=== PATIENT | male | born 1960 | race Caucasian/White ===

== ENCOUNTER 2017-06-12 10:56 | Observation (INO) ==
--- NOTE | 2017-06-12 11:28 | Emergency Department Note ---
Disposition Clinical Impression: Hydronephrosis of right kidney, Urinary tract obstruction by kidney stone Chest pain Qualifiers: Chest pain type: precordial pain Qualified Code(s): R07.2 - Precordial pain Disposition: Admitted As Inpatient Condition: Fair Time of Disposition: 15:01 Chest Pain HPI - General Chief Complaint: ED Chest Pain Stated Complaint: Needs a heart evaluation Source: patient, family Limitations: no limitations Vital Signs Reviewed: Yes Nursing Notes Reviewed: Yes - History of Present Illness HPI Narrative: 57-year-old male history of previous TX with [address] May cardiology. Patient states that the past 2 weeks his been having increased fatigue. He has complaints of intermittent chest pain left sided chest last seconds at a time. No diaphoresis lightheadedness and dizziness recorded with episodes. Patient states pain sharp and intense and then goes away without intervention. Patient's states that he has been more fatigued than he is letting on. She states that he does not want to get up to do anything. She called Dr. May's office and was directed to bring him in for evaluation. Severity scale (1-10): 0 - Related Data Home Medications Medication Instructions Recorded Confirmed Esomeprazole Magnesium [Nexium] 40 mg PO DAILY 07/23/16 06/12/17 Losartan [Cozaar] 50 mg PO DAILY 10/29/16 06/12/17 amLODIPine [Norvasc] 10 mg PO DAILY 10/29/16 06/12/17 Carvedilol [Carvedilol] 3.125 mg PO BID 06/12/17 06/12/17 Ticagrelor [Brilinta] 90 mg PO BID 06/12/17 06/12/17 Previous Rx's Medication Instructions Recorded Aspirin 81 mg PO DAILY #60 tab.chew 07/24/16 Nitroglycerin 0.4 mg SL Q5MIN PRN #30 tab.subl 07/24/16 Allergies Allergy/AdvReac Type Severity Reaction Status Date / Time No Known Allergies Allergy Verified 06/12/17 10:59 Review of Systems: Patient admits to intermittent nausea and vomiting. No hematemesis. Patient denies dysuria, hematuria, melana or hematochezia. Patient admits to abdominal pain no diarrhea All systems ED: reviewed and negative except as stated. Review of Systems: As Per HPI Chest Pain PMH - Past Medical History Medical history: Reports: arthritis, asthma, cardiomyopathy, coronary artery disease, GERD, hyperlipidemia, hypertension, myocardial infarction, renal disease, other Surgical history: Reports: angioplasty/stent, appendectomy, orthopedic, other, other Psychiatric history: Reports: no psych history Prior Cardiac Testing/Procedures: Stenting, Cardiac Angiogram - Social History Smoking Status: Never smoker Alcohol use: Reports: none Drug use: Reports: none Physical Exam - General Limitations: no limitations General appearance: alert, in no apparent distress - Head Head exam: atraumatic, normocephalic, normal inspection - Eye Eye exam: Present: normal appearance, PERRL, EOMI - ENT ENT exam: normal exam, normal oropharynx, mucous membranes moist - Neck Neck exam: Present: normal inspection, full ROM, trachea midline - Chest Chest inspection: Present: normal inspection, symmetric chest wall rise - Cardiovascular Cardiovascular exam: Present: regular rate, normal rhythm, normal heart sounds - Abdominal Exam Abdominal exam: Present: soft, tenderness, normal bowel sounds. Absent: distention, guarding, rebound, rigidity Abdominal tenderness: Present: RLQ, LUQ, diffuse - Extremities Exam Extremities exam: Present: normal inspection, full ROM. Absent: tenderness, pedal edema - Expanded Lower Extremity Exam Hip/Pelvis exam: Present: normal inspection, full ROM Upper leg exam: Present: normal inspection, full ROM Knee exam: Present: normal inspection, full ROM Lower leg exam: Present: normal inspection, full ROM Ankle exam: Present: normal inspection, full ROM Foot/toe exam: Present: normal inspection, full ROM Neurovascular/Tendon exam: Absent: motor deficit, sensory deficit, tendon deficit - Back Exam Back exam: Present: normal inspection, full ROM, tenderness, CVA tenderness (R) . Absent: CVA tenderness (L) - Neurological Exam Neurological exam: Present: alert, oriented X3, CN II-XII intact - Skin Skin exam: Present: warm, dry, intact, normal color. Absent: cyanosis, diaphoresis Course - Reevaluation(s) Reevaluation #1: CBC, BMP, chest x-ray 2 view, troponin ordered CT abdomen and pelvis ordered. Time: 11:42 - Consultations Consultation #1: Dr. Maxim Logan cardiology was consulted about the speed on patient condition. States that does not seem much for them to do right now but can admitted to medicine And they will follow-up with patient on the floor. Time: 14:14 Consultation #2: Dr. Anderson of Urology states outpatient follow-up one - two weeks. if admitted they will see him. Time: 14:30 Consultation #3: Joselyn naranjo Hospitalist has accepted Pt for admission [id number] Time: 14:58 Vital Signs Temperature 97.8 F 06/12/17 11:02 Pulse Rate 76 06/12/17 11:02 Respiratory Rate 16 06/12/17 11:02 Blood Pressure 137/89 06/12/17 11:02 O2 Sat by Pulse Oximetry 97 06/12/17 11:02 Temperature 98.3 F 06/12/17 23:10 Pulse Rate 75 06/12/17 23:10 Respiratory Rate 16 06/12/17 23:10 Blood Pressure 127/77 06/12/17 23:10 O2 Sat by Pulse Oximetry 97 06/12/17 23:10 Oxygen Delivery Oxygen Delivery Room Air Chest Pain - MDM Narrative Medical decision making narrative: Patient chest pain concern for ACS/TX, Unstable angina. Also on the differential diagnosis as PE, aortic dissection. Patient has some abdominal tenderness may be attributed to constipation but also concerning for bowel ischemia as well. Patient reports no hematemesis, no hematochezia or melanotic stool. Will check urine as well possible UTI. Plan after workup as a consult cardiology and plan for admit Assessment case with Dr. Maxim Logan cardiology to recommends admission. I spoke to patient concerning this. Patient agrees and accepts admission decision. I also spoke with Dr. Anderson of urology who states that they will see patient once admitted to assess his large proximal stone. Joselyn Way hospitalist has accepted the patient for admission. Urine ordered to rule out infection which resulted in no UTI. - Lab Data Lab results reviewed: Yes I reviewed the patient's lab results. Lab results narrative: Short CBC 06/12/17 Range/Units 12:14 WBC 9.1 (4.3-11.1) K/mcL Hgb 14.2 (12.9-16.9) g/dL Hct 40.8 (37.5-50.1) % Plt Count 261 (140-400) K/mcL Neutrophils # 5.5 (1.6-8.9) K/mcL BMP 06/12/17 Range/Units 12:14 Sodium 138 (136-145) mEq/L Potassium 4.4 (3.5-4.5) mEq/L Chloride 106 (98-109) mEq/L Carbon Dioxide 23 (19-29) mEq/L BUN 22 (8-26) mg/dL Creatinine 1.20 (0.72-1.25) mg/dL Glucose 112 H (70-99) mg/dL Calcium 9.5 (8.6-10.8) mg/dL Cardiac Enzymes 06/12/17 Range/Units 12:14 Troponin I 0.00 (0-0.03) ng/mL Liver Function 06/12/17 Range/Units 12:14 Total Bilirubin 0.7 (0.2-1.2) mg/dL Direct Bilirubin 0.3 (0.0-0.5) mg/dL AST 19 (5-34) Units/L ALT 23 (0-55) Units/L Alkaline Phosphatase 65 (38-126) Units/L Albumin 4.0 (3.5-5.0) g/dL Result diagrams: 06/12/17 12:14 06/12/17 12:14 Lab Results 06/12/17 06/12/17 06/12/17 Range/Units 12:14 12:14 12:14 WBC (4.3-11.1) K/mcL RBC (4.19-5.50) M/mcL Hgb (12.9-16.9) g/dL Hct (37.5-50.1) % MCV (83.0-100.0) fL MCH (28.0-33.3) pg MCHC (31.6-35.5) g/dL RDW (11.5-14.5) % Plt Count (140-400) K/mcL MPV (9.4-12.4) fL Immature Gran % (0-4) % Seg Neutrophils % % Lymphocytes % % Monocytes % % Eosinophils % % Basophils % % Neutrophils # (1.6-8.9) K/mcL Lymphocytes # (0.6-4.6) K/mcL Monocytes # (0.0-1.3) K/mcL Eosinophils # (0.0-0.6) K/mcL Basophils # (0.0-0.2) K/mcL PT 10.9 (9.4-12.1) Seconds INR 1.0 APTT 30.2 (26.0-36.0) Seconds D-Dimer 301 (0-500) ng/mLFEU Sodium 138 (136-145) mEq/L Potassium 4.4 (3.5-4.5) mEq/L Chloride 106 (98-109) mEq/L Carbon Dioxide 23 (19-29) mEq/L BUN 22 (8-26) mg/dL Creatinine 1.20 (0.72-1.25) mg/dL Est GFR ( Amer) > 60 (> 60) Est GFR (Non-Af Amer) > 60 (> 60) BUN/Creatinine Ratio 18 (6-26) Glucose 112 H (70-99) mg/dL Calculated Osmolality 290 (280-300) Lactic Acid 1.0 (0.5-2.2) mmol/L Calcium 9.5 (8.6-10.8) mg/dL Total Bilirubin 0.7 (0.2-1.2) mg/dL Direct Bilirubin 0.3 (0.0-0.5) mg/dL Indirect Bilirubin 0.4 (0.0-1.2) mg/dL AST 19 (5-34) Units/L ALT 23 (0-55) Units/L Alkaline Phosphatase 65 (38-126) Units/L Troponin I (0-0.03) ng/mL Serum Total Protein 7.8 (6.0-8.3) g/dL Albumin 4.0 (3.5-5.0) g/dL Globulin 3.8 H (2.4-3.5) g/dL Albumin/Globulin Ratio 1.1 (1.1-2.2) Lipase 50 (8-78) Units/L 06/12/17 06/12/17 Range/Units 12:14 12:14 WBC 9.1 (4.3-11.1) K/mcL RBC 4.33 (4.19-5.50) M/mcL Hgb 14.2 (12.9-16.9) g/dL Hct 40.8 (37.5-50.1) % MCV 94.2 (83.0-100.0) fL MCH 32.8 (28.0-33.3) pg MCHC 34.8 (31.6-35.5) g/dL RDW 12.7 (11.5-14.5) % Plt Count 261 (140-400) K/mcL MPV 9.1 L (9.4-12.4) fL Immature Gran % 0.3 (0-4) % Seg Neutrophils % 60.2 % Lymphocytes % 28.7 % Monocytes % 7.2 % Eosinophils % 3.0 % Basophils % 0.6 % Neutrophils # 5.5 (1.6-8.9) K/mcL Lymphocytes # 2.6 (0.6-4.6) K/mcL Monocytes # 0.7 (0.0-1.3) K/mcL Eosinophils # 0.3 (0.0-0.6) K/mcL Basophils # 0.1 (0.0-0.2) K/mcL PT (9.4-12.1) Seconds INR APTT (26.0-36.0) Seconds D-Dimer (0-500) ng/mLFEU Sodium (136-145) mEq/L Potassium (3.5-4.5) mEq/L Chloride (98-109) mEq/L Carbon Dioxide (19-29) mEq/L BUN (8-26) mg/dL Creatinine (0.72-1.25) mg/dL Est GFR ( Amer) (> 60) Est GFR (Non-Af Amer) (> 60) BUN/Creatinine Ratio (6-26) Glucose (70-99) mg/dL Calculated Osmolality (280-300) Lactic Acid (0.5-2.2) mmol/L Calcium (8.6-10.8) mg/dL Total Bilirubin (0.2-1.2) mg/dL Direct Bilirubin (0.0-0.5) mg/dL Indirect Bilirubin (0.0-1.2) mg/dL AST (5-34) Units/L ALT (0-55) Units/L Alkaline Phosphatase (38-126) Units/L Troponin I 0.00 (0-0.03) ng/mL Serum Total Protein (6.0-8.3) g/dL Albumin (3.5-5.0) g/dL Globulin (2.4-3.5) g/dL Albumin/Globulin Ratio (1.1-2.2) Lipase (8-78) Units/L - Radiology Data Radiology results reviewed: Yes I reviewed the patient's radiology results. Chest X-Ray 06/12/17 11:42 IMPRESSION: No acute process. D/ / Alejandro Titus MD / Alejandro Titus MD Interpreting Provider: Alejandro Titus MD Abdomen/Pelvis CT 06/12/17 11:43 IMPRESSION: 1. Severe right-sided hydronephrosis, secondary to a 10 x 14 mm calculus in the proximal right ureter. 2. A couple of punctate calculi are noted in the left kidney. 3. Hepatic steatosis. D/ / 06/12/2017 12:39:55 Leola Boyce / alonso Interpreting Provider: Leola Boyce - EKG Data EKG attestation: Yes I reviewed and interpreted this EKG. EKG results narrative: EKG taken 06/12/2017 at 1102 hrs. shows sinus rhythm at a rate [address] elevation or depressions A Leas, no gross widened QT prolongation,no brugada , wellens, or scarbosa. Previous EKG taken in 10/29/2016 shows a sinus rhythm at a rate of 69 beats had no acute ST elevations or depressions Heart Score - Score History: Slightly Suspicious EKG: Normal Age: 45-65 Risk Factors: Equal/Greater than 3 risk factor or history of atherosclerotic disease Troponin: Less than normal limit HEART Score Total: 3 Attestation Statement - Attestation Attestation: Patient was seen with resident physician. I reviewed the history, physical, assessment and plan, and agree with the findings. I also personally evaluated this patient and had [id number] time with this patient. 49-year-old male presents to emergency department with worsening chest painful S week or so. Patient is somewhat stoic and is part of the history is obtained from his . She says he comes home from work was done to relaxants develops chest pressure or chest pain like sensation. Patient states that it is sharp and it only lasts for seconds at a time. seems to think that last slightly longer than this. He has also had some intermittent abdominal pain he says ever since he changed his reflux medication to generic from brand name. She says he has been unable to eat usual meals and he describes a bloating sensation the abdomen without specific location of pain. Denies fevers or chills. No shortness of breath. On examination vital signs are stable. ENT is unremarkable. Her lungs are normal. Abdomen is distended but nontender there is no guarding rigidity and he has normal bowel sounds. Extremities are unremarkable. Neurologically this patient is intact. ED course we will do workup for cardiac disease. 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 He does have a significant cardiac history. Initial EKG does not menstruate any acute ischemic changes. Once all the lab tests are back we will contact cardiology to help disposition the patient. Initial cardiac workup was negative for acute abnormalities. Patient was found to have an obstructing renal stone which could be causing his abdominal discomfort. We discussed this case with cardiology who suggested admission for serial troponins. We also discussed with urology who said he could see him as an inpatient. Findings of the workup were discussed with the patient he agreed to stay in the hospital. Hospitalist service was notified and the patient was admitted Agree with resident physician assessment plan.
[2017-06-12] MEDS ORDERED: Aspirin 81 MG TAB.CHEW PO ONE (11:42)
[2017-06-12] MEDS ORDERED: GI Cocktail 40 ML EACH PO ONE (11:42)
[2017-06-12] MEDS ORDERED: Ondansetron 4 MG/2 ML VIAL IVP ONE (11:42)
[2017-06-12 12:26] LABS: Basophils # 0.1 K/mcL (0.0-0.2); Basophils % 0.6 %; Eosinophils # 0.3 K/mcL (0.0-0.6); Hematocrit 40.8 % (37.5-50.1); Hemoglobin 14.2 g/dL (12.9-16.9); Immature Granulocytes % 0.3 % (0-4); Lymphocytes # 2.6 K/mcL (0.6-4.6); Lymphocytes % 28.7 %; Mean Corpuscular HGB Conc 34.8 g/dL (31.6-35.5); Mean Corpuscular Hemoglobin 32.8 pg (28.0-33.3); Mean Corpuscular Volume 94.2 fL (83.0-100.0); Mean Platelet Volume 9.1 fL (9.4-12.4); Monocytes # 0.7 K/mcL (0.0-1.3); Monocytes % 7.2 %; Neutrophils # 5.5 K/mcL (1.6-8.9); Platelet Count 261 K/mcL (140-400); Red Blood Count 4.33 M/mcL (4.19-5.50); Red Cell Distribution Width 12.7 % (11.5-14.5); Segmented Neutrophils % 60.2 %
[2017-06-12 12:29] LABS: Prothrombin Time 10.9 Seconds (9.4-12.1)
[2017-06-12 12:31] LABS: Activated Partial Thrombo Time 30.2 Seconds (26.0-36.0)
[2017-06-12] MEDS ORDERED: 0.9 % Sodium Chloride 1,000 ML IVC ONE (12:36)
[2017-06-12 12:41] LABS: Alanine Aminotransferase 23 Units/L (0-55); Alkaline Phosphatase 65 Units/L (38-126); Aspartate Amino Transferase 19 Units/L (5-34); BUN/Creatinine Ratio 18 (6-26); Bilirubin,Direct 0.3 mg/dL (0.0-0.5); Bilirubin,Indirect 0.4 mg/dL (0.0-1.2); Bilirubin,Total 0.7 mg/dL (0.2-1.2); Blood Urea Nitrogen 22 mg/dL (8-26); Calcium 9.5 mg/dL (8.6-10.8); Carbon Dioxide 23 mEq/L (19-29); Chloride 106 mEq/L (98-109); Glucose 112 mg/dL (70-99); Osmolality,Calculated 290 (280-300); Potassium 4.4 mEq/L (3.5-4.5); Sodium 138 mEq/L (136-145); Total Protein 7.8 g/dL (6.0-8.3); eGFR For African Americans > 60 (> 60); eGFR For Non-African Americans > 60 (> 60)
[2017-06-12 12:42] LABS: Albumin/Globulin Ratio 1.1 (1.1-2.2); Globulin 3.8 g/dL (2.4-3.5); Lipase 50 Units/L (8-78)
[2017-06-12] MEDS ORDERED: Acetaminophen 325 MG TABLET PO PRN (15:26)
[2017-06-12] MEDS ORDERED: Ondansetron 4 MG/2 ML VIAL IVP PRN (15:26)
[2017-06-12] MEDS ORDERED: Naloxone 0.4 MG/ML INJ IVP PRN (15:26)
[2017-06-12] MEDS ORDERED: Nitroglycerin 0.4 MG TAB.SUBL SL PRN (15:29)
[2017-06-12] MEDS: 0.9 % Sodium Chloride 1,000 ML IVC SCH (17:20)
[2017-06-12 18:07] LABS: Bilirubin,Urine Negative (Negative); Blood,Urine Negative (Negative); Clarity,Urine Clear (Clear); Color,Urine Yellow (Yellow); Glucose,Urine (UA) Normal (Normal); Ketones,Urine Negative (Negative); Leukocyte Esterase,Urine Negative (Negative); Nitrite,Urine Negative (Negative); Protein,Urine Negative (Neg-Trace); Specific Gravity,Urine 1.013 (1.010-1.025); Urobilinogen,Urine Normal (Normal)
--- NOTE | 2017-06-12 18:52 | Urology - Consult Note ---
Date of Encounter: 06/12/17 Time of Encounter: 18:50 - Assessment and Plan (1) Ureteral stone with hydronephrosis Current Visit: Yes Status: Acute Assessment and plan: I personally reviewed the CT scan and discussed the findings with the patient and his . Although the patient has severe hydronephrosis he does not meet criteria for emergent urologic intervention as he has no severe pain, no signs of urinary tract infection or renal insufficiency. I do feel that a lot of his symptoms of the last few months are likely attributed to the stone. I suspect it has been in this position for some time. We did discuss performing a ureteral stent while the patient was in the hospital which could help relieve some of his symptoms. After the stent was placed he would require a staged stone extraction. I would need the patient to be cleared from a cardiology standpoint if this procedure will occur this weekend. Alternatively, I could schedule the patient for an outpatient in situ stone extraction in the near future which would allow treatment of the stone in one procedure. He would like to pursue this route as he is not having acute illness from the stone. I feel this is reasonable. I will rediscuss with the patient in the morning to verify he is comfortable with this plan. If this is the case, he can be discharged as soon as he is cleared from a cardiac standpoint. Urology CN:CHRISTOPHER Consult date: 06/12/17 Reason for consult Urology: Hydronephrosis History of present illness: 57-year-old male. He presented to the emergency room with epigastric pressure some left sided chest discomfort, occasional nausea vomiting. No specific flank pain. The CT scan was done which showed a large proximal ureteral stone with hydronephrosis. He admits to a distant history of stones but has not had similar flank pain as previous. States he's not felt right for a number of months and believes now it may have been the stone. He admits that he overall does not feel bad. No gross hematuria. No dysuria. No fever. Past Med Surg Social Fam HX - Past Medical History Medical history: arthritis, asthma, cardiomyopathy, coronary artery disease, GERD, hyperlipidemia, hypertension, myocardial infarction, renal disease, other Psychiatric history: no psych history - Past Surgical History Surgical History: angioplasty/stent, appendectomy, orthopedic, other, other - Social History Smoking Status: Never smoker Smokeless Tobacco Status: No Alcohol use: none Drug use: none - Family History Father Living Status: Hx Family Cardiac Disorders: Yes (defibulator, CHF, [place]) Mother Living Status: Still Living Hx Family Cardiac Disorders: Yes (triple bypass) Hx Family Cancer: Yes (breast cancer) Medications and Allergies Esomeprazole Magnesium [Nexium] 40 mg PO DAILY 07/23/16 [History] Aspirin 81 mg PO DAILY #60 tab.chew 07/24/16 [Rx] Nitroglycerin 0.4 mg SL Q5MIN PRN #30 tab.subl 07/24/16 [Rx] Losartan [Cozaar] 50 mg PO DAILY 10/29/16 [History] amLODIPine [Norvasc] 10 mg PO DAILY 10/29/16 [History] Carvedilol [Carvedilol] 3.125 mg PO BID 06/12/17 [History] Ticagrelor [Brilinta] 90 mg PO BID 06/12/17 [History] 3 Allergy/AdvReac Type Severity Reaction Status Date / Time No Known Allergies Allergy Verified 06/12/17 10:59 Review of Systems - Constitutional no chills, no fever(s) - EENT Nose, mouth and throat: no dizziness - Cardiovascular chest pain - Gastrointestinal abdominal pain, nausea, vomiting - Genitourinary no flank pain - Musculoskeletal back pain - Integumentary no erythema - Neurological no confusion - Psychiatric no anxiety - Hematologic/Lymphatic no easy bleeding - Allergic/Immunologic no throat swelling Exam Initial Vital Signs Temp Pulse Resp BP Pulse Ox 97.8 F 76 16 137/89 97 06/12/17 11:02 06/12/17 11:02 06/12/17 11:02 06/12/17 11:02 06/12/17 11:02 - General physical appearance Present: well developed, no distress - Eyes Present: PERRL - ENT Present: normal nares - Neck Present: no masses - Respiratory Present: normal respiratory effort - Cardiovascular Cardiovascular exam IM: RRR - Abdomen Abdomen: Present: soft - Integumentary Present: no rash, no growths, no abnormal pigmentation - Neurologic Absent: disoriented, confused Urology Results - Labs 06/12/17 12:14 06/12/17 12:14 Abnormal lab results MPV 9.1 fL (9.4-12.4) L 06/12/17 12:14 Glucose 112 mg/dL (70-99) H 06/12/17 12:14 Globulin 3.8 g/dL (2.4-3.5) H 06/12/17 12:14 All other labs normal. Consult Discharge Plan - Plan Referrals: Rogerio Mccarthy MD [Primary Care Provider] -
--- NOTE | 2017-06-12 19:29 | Internal Med History&Physical ---
<Joselyn Way M - Last Filed: 06/12/17 20:32> Date of Encounter: 06/12/17 Time of Encounter: 19:23 Assessment and Plan (1) Chest pain Current visit: Yes Status: Acute Patient with occasional sharp pain in his chest that usually resolved on its own in less that 1 minute. Patient with history of CAD with stent placement in October. EKG showed Sinus rhythm with no ST elevation or depression. Troponin negative at 0.00. Cardiology consulted given patient's history. Continuous monitor tech Serial troponins for trend. Continue aspirin, beta colten, statin. NPO after midnight in case of possible intervention. Qualifiers: Chest pain type: precordial pain Qualified Code(s): R07.2 - Precordial pain (2) Ureteral stone with hydronephrosis Current visit: Yes Status: Acute Patient reporting abdominal pain, occasional nausea and vomiting. CT abd/ pelvis showed severe right sided hydronephrosis with a 10 x 14 mm right proximaly ureteral stone. UA negative for infection. Urology consulted, Dr. Anderson saw patient and plans outpatient follow-up and will see patient again tomorrow. IV fluids - given 1L bolus in ED, continue with 0.9NS at 100mL/hr. Zofran prn for nausea. (3) CAD (coronary artery disease), [place] coronary artery Current visit: Yes Status: Chronic History of CAD with stent in October. Continue home dose of aspirin, statin, beta colten. Qualifiers: [place] vs. transplanted heart: [place] heart Associated angina: with stable angina Qualified Code(s): I25.118 - Atherosclerotic heart disease of [place] coronary artery with other forms of angina pectoris (4) DVT prophylaxis Current visit: Yes Status: Acute anti-embolic stockings heparin SQ TID Internal Medicine - H&P: HPI Chief complaint: chest pain, abdominal pain Admitted From: Emergency Dept Plans for Post Hospital Care: Home History of present illness: Mr. Hayes is a 57 year old male with asthma, GERD, CAD s/p stent placement x 2 (most recently in October), kidney stones, HTN, HLD who presented to the emergency department today with complaints of fatigue, intermittent chest pain, abdominal pain, nausea and vomiting. Patient reports that he has been feeling tired and fatigued for the last couple weeks, in the last week he has had intermittent chest pain, describing it as a sharp sudden pain lasting less than a minute. The last couple of days he has also had nausea and vomiting in the afternoon. He also describes occasional lightheadedness and abdominal pain. He denies any fever, chills or sweats, he denies any dysuria, diarrhea or hernia , palpitations. Evaluation in the emergency department included EKG which showed sinus rhythm with no ST elevations or depressions, troponin was negative at 0.00. CT of the abdomen and pelvis showed severe right-sided hydronephrosis with a 10 x 14 mm proximal right ureteral stone. Other labs are grossly normal. On exam, patient alert and oriented, in no acute distress. Heart is regular rate and rhythm, lungs are clear bilaterally to auscultation. Abdomen is soft, with mild diffuse tenderness, with increased tenderness on the right. Past Med Surg Social Fam HX - Past Medical History Medical history: arthritis, asthma, cardiomyopathy, coronary artery disease, GERD, hyperlipidemia, hypertension, kidney stones, myocardial infarction, renal disease, other Psychiatric history: no psych history - Past Surgical History Surgical History: angioplasty/stent, appendectomy, orthopedic, other, other - Social History Smoking Status: Never smoker Smokeless Tobacco Status: No Alcohol use: none Drug use: none - Family History Father Living Status: Hx Family Cardiac Disorders: Yes (defibulator, CHF, [place]) Mother Living Status: Still Living Hx Family Cardiac Disorders: Yes (triple bypass) Hx Family Cancer: Yes (breast cancer) Internal Medicine - H&P: Meds Esomeprazole Magnesium [Nexium] 40 mg PO DAILY 07/23/16 [History] Aspirin 81 mg PO DAILY #60 tab.chew 07/24/16 [Rx] Nitroglycerin 0.4 mg SL Q5MIN PRN #30 tab.subl 07/24/16 [Rx] Losartan [Cozaar] 50 mg PO DAILY 10/29/16 [History] amLODIPine [Norvasc] 10 mg PO DAILY 10/29/16 [History] Carvedilol [Carvedilol] 3.125 mg PO BID 06/12/17 [History] Ticagrelor [Brilinta] 90 mg PO BID 06/12/17 [History] 3 Allergy/AdvReac Type Severity Reaction Status Date / Time No Known Allergies Allergy Verified 06/12/17 10:59 All Systems PM: A 10-system review of systems was performed and is negative for pertinent findings except as documented above in the HPI. - Constitutional Constitutional: fatigue, no chills, no fever(s), no night sweats - EENT Eyes: no change in vision, no discharge, no pain, no photophobia Ears: no ear discharge, no ear pain, no tinnitus Nose, mouth and throat: no dysphagia, no nasal discharge, no neck pain, no sore throat - Cardiovascular Cardiovascular ROS IM: chest pain, dyspnea on exertion, lightheadedness, no diaphoresis, no dyspnea, no palpitations, no syncope - Respiratory Respiratory: no cough, no dyspnea, no wheezing, no excessive phlegm production - Gastrointestinal Gastrointestinal: abdominal pain, nausea, vomiting, no diarrhea, no hematemesis , no hematochezia, no melena - Musculoskeletal Musculoskeletal ROS IM: no numbness, no tingling - Integumentary Integumentary IM: no rash, no unusual bruising - Neurological Neurological ROS: no confusion, no convulsions, no focal weakness, no numbness, no tingling, no tremor(s) - Hematologic/Lymphatic Hematologic/Lymphatic: no easy bruising - Constitutional Vitals: Temp Pulse Resp BP Pulse Ox 97.6 F 73 18 133/99 98 06/12/17 15:31 06/12/17 15:31 06/12/17 15:31 06/12/17 15:31 06/12/17 15:31 General appearance: Present: A&O X 3, pleasant, no acute distress - Head Head exam: Present: atraumatic, normocephalic - Eye Eye exam: Present: PERRL, conjuntiva pink, sclera anicteric Pupils: Present: PERRL - Neck Neck exam general surgery: Present: supple, trachea midline. Absent: lymphadenopathy - Respiratory Respiratory exam: Present: CTAB. Absent: accessory muscle use, rales, rhonchi, wheezes - Cardiovascular Cardiovascular exam: Present: RRR, +S1, +S2. Absent: diastolic murmur, gallop, rubs, systolic murmur - GI/Abdominal GI/Abdominal exam: Present: normal bowel sounds, soft, tenderness (mild diffuse , right side greater than left), no peritoneal signs. Absent: distended - Extremities Exam Extremities exam: Present: warm, radial pulses palpable and symmetrical. Absent : calf tenderness, cyanotic, pedal edema - Neurological Exam Neurological exam: Present: CN II-XII intact, oriented X3, no focal deficits. Absent: pronater drift, facial droop, speech deficit - Skin Skin exam: Present: dry, intact Internal Med - H&P Results - Labs CBC & Chem 7: 06/12/17 12:14 06/12/17 12:14 Labs: Cardiac Enzymes 06/12/17 Range/Units 17:36 Troponin I 0.00 (0-0.03) ng/mL Urine 06/12/17 Range/Units 17:50 Urine Color Yellow (Yellow) Urine Clarity Clear (Clear) Urine pH 7.0 (5.0-8.0) pH Units Ur Specific [place] 1.013 (1.010-1.025) Urine Protein Negative (Neg-Trace) mg/dL Urine Glucose (UA) Normal (Normal) mg/dL All Lab Results (24 Hours) 06/12/17 06/12/17 06/12/17 Range/Units 12:14 12:14 12:14 WBC (4.3-11.1) K/mcL RBC (4.19-5.50) M/mcL Hgb (12.9-16.9) g/dL Hct (37.5-50.1) % MCV (83.0-100.0) fL MCH (28.0-33.3) pg MCHC (31.6-35.5) g/dL RDW (11.5-14.5) % Plt Count (140-400) K/mcL MPV (9.4-12.4) fL Immature Gran % (0-4) % Seg Neutrophils % % Lymphocytes % % Monocytes % % Eosinophils % % Basophils % % Neutrophils # (1.6-8.9) K/mcL Lymphocytes # (0.6-4.6) K/mcL Monocytes # (0.0-1.3) K/mcL Eosinophils # (0.0-0.6) K/mcL Basophils # (0.0-0.2) K/mcL PT 10.9 (9.4-12.1) Seconds INR 1.0 APTT 30.2 (26.0-36.0) Seconds D-Dimer 301 (0-500) ng/mLFEU Sodium 138 (136-145) mEq/L Potassium 4.4 (3.5-4.5) mEq/L Chloride 106 (98-109) mEq/L Carbon Dioxide 23 (19-29) mEq/L BUN 22 (8-26) mg/dL Creatinine 1.20 (0.72-1.25) mg/dL Est GFR ( Amer) > 60 (> 60) Est GFR (Non-Af Amer) > 60 (> 60) BUN/Creatinine Ratio 18 (6-26) Glucose 112 H (70-99) mg/dL Calculated Osmolality 290 (280-300) Lactic Acid 1.0 (0.5-2.2) mmol/L Calcium 9.5 (8.6-10.8) mg/dL Total Bilirubin 0.7 (0.2-1.2) mg/dL Direct Bilirubin 0.3 (0.0-0.5) mg/dL Indirect Bilirubin 0.4 (0.0-1.2) mg/dL AST 19 (5-34) Units/L ALT 23 (0-55) Units/L Alkaline Phosphatase 65 (38-126) Units/L Troponin I (0-0.03) ng/mL Serum Total Protein 7.8 (6.0-8.3) g/dL Albumin 4.0 (3.5-5.0) g/dL Globulin 3.8 H (2.4-3.5) g/dL Albumin/Globulin Ratio 1.1 (1.1-2.2) Lipase 50 (8-78) Units/L Urine Color (Yellow) Urine Clarity (Clear) Urine pH (5.0-8.0) pH Units Ur Specific [place] (1.010-1.025) Urine Protein (Neg-Trace) mg/dL Urine Glucose (UA) (Normal) mg/dL Urine Ketones (Negative) mg/dL Urine Blood (Negative) Urine Nitrite (Negative) Urine Bilirubin (Negative) Urine Urobilinogen (Normal) mg/dL Ur Leukocyte Esterase (Negative) Ur Culture Indicated? (NO) 06/12/17 06/12/17 06/12/17 Range/Units 12:14 12:14 17:36 WBC 9.1 (4.3-11.1) K/mcL RBC 4.33 (4.19-5.50) M/mcL Hgb 14.2 (12.9-16.9) g/dL Hct 40.8 (37.5-50.1) % MCV 94.2 (83.0-100.0) fL MCH 32.8 (28.0-33.3) pg MCHC 34.8 (31.6-35.5) g/dL RDW 12.7 (11.5-14.5) % Plt Count 261 (140-400) K/mcL MPV 9.1 L (9.4-12.4) fL Immature Gran % 0.3 (0-4) % Seg Neutrophils % 60.2 % Lymphocytes % 28.7 % Monocytes % 7.2 % Eosinophils % 3.0 % Basophils % 0.6 % Neutrophils # 5.5 (1.6-8.9) K/mcL Lymphocytes # 2.6 (0.6-4.6) K/mcL Monocytes # 0.7 (0.0-1.3) K/mcL Eosinophils # 0.3 (0.0-0.6) K/mcL Basophils # 0.1 (0.0-0.2) K/mcL PT (9.4-12.1) Seconds INR APTT (26.0-36.0) Seconds D-Dimer (0-500) ng/mLFEU Sodium (136-145) mEq/L Potassium (3.5-4.5) mEq/L Chloride (98-109) mEq/L Carbon Dioxide (19-29) mEq/L BUN (8-26) mg/dL Creatinine (0.72-1.25) mg/dL Est GFR ( Amer) (> 60) Est GFR (Non-Af Amer) (> 60) BUN/Creatinine Ratio (6-26) Glucose (70-99) mg/dL Calculated Osmolality (280-300) Lactic Acid (0.5-2.2) mmol/L Calcium (8.6-10.8) mg/dL Total Bilirubin (0.2-1.2) mg/dL Direct Bilirubin (0.0-0.5) mg/dL Indirect Bilirubin (0.0-1.2) mg/dL AST (5-34) Units/L ALT (0-55) Units/L Alkaline Phosphatase (38-126) Units/L Troponin I 0.00 0.00 (0-0.03) ng/mL Serum Total Protein (6.0-8.3) g/dL Albumin (3.5-5.0) g/dL Globulin (2.4-3.5) g/dL Albumin/Globulin Ratio (1.1-2.2) Lipase (8-78) Units/L Urine Color (Yellow) Urine Clarity (Clear) Urine pH (5.0-8.0) pH Units Ur Specific [place] (1.010-1.025) Urine Protein (Neg-Trace) mg/dL Urine Glucose (UA) (Normal) mg/dL Urine Ketones (Negative) mg/dL Urine Blood (Negative) Urine Nitrite (Negative) Urine Bilirubin (Negative) Urine Urobilinogen (Normal) mg/dL Ur Leukocyte Esterase (Negative) Ur Culture Indicated? (NO) 06/12/17 Range/Units 17:50 WBC (4.3-11.1) K/mcL RBC (4.19-5.50) M/mcL Hgb (12.9-16.9) g/dL Hct (37.5-50.1) % MCV (83.0-100.0) fL MCH (28.0-33.3) pg MCHC (31.6-35.5) g/dL RDW (11.5-14.5) % Plt Count (140-400) K/mcL MPV (9.4-12.4) fL Immature Gran % (0-4) % Seg Neutrophils % % Lymphocytes % % Monocytes % % Eosinophils % % Basophils % % Neutrophils # (1.6-8.9) K/mcL Lymphocytes # (0.6-4.6) K/mcL Monocytes # (0.0-1.3) K/mcL Eosinophils # (0.0-0.6) K/mcL Basophils # (0.0-0.2) K/mcL PT (9.4-12.1) Seconds INR APTT (26.0-36.0) Seconds D-Dimer (0-500) ng/mLFEU Sodium (136-145) mEq/L Potassium (3.5-4.5) mEq/L Chloride (98-109) mEq/L Carbon Dioxide (19-29) mEq/L BUN (8-26) mg/dL Creatinine (0.72-1.25) mg/dL Est GFR ( Amer) (> 60) Est GFR (Non-Af Amer) (> 60) BUN/Creatinine Ratio (6-26) Glucose (70-99) mg/dL Calculated Osmolality (280-300) Lactic Acid (0.5-2.2) mmol/L Calcium (8.6-10.8) mg/dL Total Bilirubin (0.2-1.2) mg/dL Direct Bilirubin (0.0-0.5) mg/dL Indirect Bilirubin (0.0-1.2) mg/dL AST (5-34) Units/L ALT (0-55) Units/L Alkaline Phosphatase (38-126) Units/L Troponin I (0-0.03) ng/mL Serum Total Protein (6.0-8.3) g/dL Albumin (3.5-5.0) g/dL Globulin (2.4-3.5) g/dL Albumin/Globulin Ratio (1.1-2.2) Lipase (8-78) Units/L Urine Color Yellow (Yellow) Urine Clarity Clear (Clear) Urine pH 7.0 (5.0-8.0) pH Units Ur Specific [place] 1.013 (1.010-1.025) Urine Protein Negative (Neg-Trace) mg/dL Urine Glucose (UA) Normal (Normal) mg/dL Urine Ketones Negative (Negative) mg/dL Urine Blood Negative (Negative) Urine Nitrite Negative (Negative) Urine Bilirubin Negative (Negative) Urine Urobilinogen Normal (Normal) mg/dL Ur Leukocyte Esterase Negative (Negative) Ur Culture Indicated? NO (NO) - Diagnostic Studies CT scan - abdomen Additional comments: Abdomen/Pelvis CT 06/12/17 11:43 IMPRESSION: 1. Severe right-sided hydronephrosis, secondary to a 10 x 14 mm calculus in the proximal right ureter. 2. A couple of punctate calculi are noted in the left kidney. 3. Hepatic steatosis. D/ / 06/12/2017 12:39:55 Leola Boyce / alonso Interpreting Provider: Leola Boyce Chest x-ray Additional comments: Chest X-Ray 06/12/17 11:42 IMPRESSION: No acute process. D/ / Alejandro Titus MD / Alejandro Titus MD Interpreting Provider: Alejandro Titus MD <Zuhair Link - Last Filed: 06/12/17 21:08> Date of Encounter: 06/12/17 Time of Encounter: 19:55 - Cardiovascular Cardiovascular ROS IM: chest pain, dyspnea on exertion - Respiratory Respiratory: no cough, no hemoptysis - Gastrointestinal Gastrointestinal: abdominal pain, nausea, vomiting - Genitourinary Genitourinary ROS male: no dysuria, no flank pain, no hematuria - Constitutional Vitals: Temp Pulse Resp BP Pulse Ox 98.5 F 81 16 131/88 96 06/12/17 19:25 06/12/17 19:25 06/12/17 19:25 06/12/17 19:25 06/12/17 19:25 General appearance: Present: A&O X 3, no acute distress - Eye Eye exam: Present: PERRL. Absent: scleral icterus - ENT ENT exam: Present: mucous membranes moist, normal exam - Neck Neck exam general surgery: Present: full ROM, supple. Absent: tenderness - Respiratory Respiratory exam: Present: CTAB. Absent: rales, rhonchi, wheezes - Cardiovascular Cardiovascular exam: Present: RRR, +S1, +S2. Absent: systolic murmur - GI/Abdominal GI/Abdominal exam: Present: normal bowel sounds, soft, tenderness (mild), no peritoneal signs. Absent: guarding, mass, rebound - Back Exam Back exam: Present: normal inspection. Absent: CVA tenderness (L), CVA tenderness (R) - Skin Skin exam: Present: dry, warm. Absent: rash Internal Med - H&P Results - Labs CBC & Chem 7: 06/12/17 12:14 06/12/17 12:14 Labs: Cardiac Enzymes 06/12/17 Range/Units 17:36 Troponin I 0.00 (0-0.03) ng/mL Urine 06/12/17 Range/Units 17:50 Urine Color Yellow (Yellow) Urine Clarity Clear (Clear) Urine pH 7.0 (5.0-8.0) pH Units Ur Specific [place] 1.013 (1.010-1.025) Urine Protein Negative (Neg-Trace) mg/dL Urine Glucose (UA) Normal (Normal) mg/dL - EKG Data -: EKG Interpreted by Myself - EKG Data Prior EKG available for review: no - Impressions NSR; no acute changes - Diagnostic Studies Chest x-ray Status: image reviewed by me (negative) - Attending Attestation I discussed the patient [place], PMH, ROS, lab data, and exam findings with Joselyn Way CNP. I then saw and examined patient independently as well. Patient described having CP while powerwashing his house the last 2 days. He then developed some vague abdominal pain and nausea and vomiting. He is currently pain free and comfortable. He has a large ureteral stone with hydronephrosis which will need to be dealt with urologically. I agree with cycling troponins and EKG's. I also agree with and request Cardiology consultation to assist in evaluation given the upcoming surgical procedure as planned per Dr. Anderson. If his condition declines from a renal/urologic standpoint, he will then require inpatient urologic intervention. However, for now, he appears well clinically and I agree with the current plan. Other than my comments above and noted exam findings, I agree with Joselyn's assessment and plan.
[2017-06-12] MEDS: *HR* Ticagrelor 90 MG TABLET PO SCH (21:56)
[2017-06-12] MEDS: *HR* Heparin 5,000 UNIT/ML VIAL SQ SCH (21:57)
[2017-06-13 00:36] LABS: Basophils # 0.1 K/mcL (0.0-0.2); Basophils % 0.6 %; Eosinophils # 0.3 K/mcL (0.0-0.6); Eosinophils % 2.9 %; Hematocrit 39.9 % (37.5-50.1); Hemoglobin 13.9 g/dL (12.9-16.9); Immature Granulocytes % 0.3 % (0-4); Lymphocytes # 3.2 K/mcL (0.6-4.6); Lymphocytes % 36.9 %; Mean Corpuscular HGB Conc 34.8 g/dL (31.6-35.5); Mean Corpuscular Hemoglobin 32.9 pg (28.0-33.3); Mean Corpuscular Volume 94.5 fL (83.0-100.0); Mean Platelet Volume 9.2 fL (9.4-12.4); Monocytes # 0.7 K/mcL (0.0-1.3); Neutrophils # 4.5 K/mcL (1.6-8.9); Platelet Count 267 K/mcL (140-400); Red Blood Count 4.22 M/mcL (4.19-5.50); Red Cell Distribution Width 12.8 % (11.5-14.5); Segmented Neutrophils % 51.3 %
[2017-06-13 00:44] LABS: BUN/Creatinine Ratio 14 (6-26); Blood Urea Nitrogen 18 mg/dL (8-26); Calcium 9.2 mg/dL (8.6-10.8); Carbon Dioxide 22 mEq/L (19-29); Chloride 107 mEq/L (98-109); Glucose 97 mg/dL (70-99); Osmolality,Calculated 288 (280-300); Potassium 4.5 mEq/L (3.5-4.5); Sodium 138 mEq/L (136-145); eGFR For African Americans > 60 (> 60); eGFR For Non-African Americans 59 (> 60)
[2017-06-13] MEDS: 0.9 % Sodium Chloride 1,000 ML IVC SCH (03:36)
[2017-06-13] MEDS: *HR* Heparin 5,000 UNIT/ML VIAL SQ SCH (03:37)
--- NOTE | 2017-06-13 06:27 | Urology Progress Note ---
Date of Encounter: 06/13/17 Time of Encounter: 06:25 - Assessment and Plan (1) Ureteral stone with hydronephrosis Current Visit: Yes Status: Acute Assessment and plan: Patient has had no pain overnight. Urinalysis is negative. Renal function is stable and normal. Patient does not require urgent stent during this hospitalization. This was discussed yesterday. It looks like his cardiac workup is negative. Okay with urology discharge this morning. My office will contact patient Thursday to schedule outpatient ureteroscopic stone extraction Progress Note Subjective: no new complaints Objective Initial Vital Signs Temp Pulse Resp BP Pulse Ox 97.8 F 76 16 137/89 97 06/12/17 11:02 06/12/17 11:02 06/12/17 11:02 06/12/17 11:02 06/12/17 11:02 - General physical appearance Present: no distress - Labs 06/13/17 00:21 06/13/17 00:21 Diabetes panel 06/13/17 Range/Units 00:21 Sodium 138 (136-145) mEq/L Potassium 4.5 (3.5-4.5) mEq/L Chloride 107 (98-109) mEq/L Carbon Dioxide 22 (19-29) mEq/L BUN 18 (8-26) mg/dL Creatinine 1.25 (0.72-1.25) mg/dL Glucose 97 (70-99) mg/dL Calcium 9.2 (8.6-10.8) mg/dL Calcium panel 06/13/17 Range/Units 00:21 Calcium 9.2 (8.6-10.8) mg/dL Pituitary panel 06/13/17 Range/Units 00:21 Sodium 138 (136-145) mEq/L Potassium 4.5 (3.5-4.5) mEq/L Chloride 107 (98-109) mEq/L Carbon Dioxide 22 (19-29) mEq/L BUN 18 (8-26) mg/dL Creatinine 1.25 (0.72-1.25) mg/dL Glucose 97 (70-99) mg/dL Calcium 9.2 (8.6-10.8) mg/dL Adrenal panel 06/13/17 Range/Units 00:21 Sodium 138 (136-145) mEq/L Potassium 4.5 (3.5-4.5) mEq/L Chloride 107 (98-109) mEq/L Carbon Dioxide 22 (19-29) mEq/L BUN 18 (8-26) mg/dL Creatinine 1.25 (0.72-1.25) mg/dL Glucose 97 (70-99) mg/dL Calcium 9.2 (8.6-10.8) mg/dL Consult Discharge Plan - Plan Referrals: Rogerio Mccarthy MD [Primary Care Provider] -
[2017-06-13] MEDS ORDERED: amLODIPine 5 MG TABLET PO SCH (09:00)
[2017-06-13] MEDS ORDERED: Aspirin 81 MG TAB.CHEW PO SCH (09:00)
--- NOTE | 2017-06-13 09:16 | Cardiology Consult Note ---
Date of Encounter: 06/13/17 Time of Encounter: 09:14 Assessment and Plan (1) Chest pain Current Visit: Yes Status: Acute Atypical chest pain. EKG and cardiac enzymes negative. No further cardiac w/u needed. Qualifiers: Chest pain type: other chest pain Qualified Code(s): R07.89 - Other chest pain; R07.8 - Other chest pain Discussion w patient/family: The assessment and plan as outlined above was discussed with the patient and/or family members who expressed understanding and agreement. All questions were answered. Thank you for involving us in the care of your patient. Please call with any questions. History of Present Illness Consult date: 06/13/17 Requesting physician: Alexus Fuchs Consult reason: Chest pain Chief complaint: Chest pain History of present illness: Mr. Hayes is a 57 year old male with known CAD. He presented with atypical chest pain not similar to previous angina. He was found to have a large kidney stone. The remainder of his cardiac workup was negative. Past Med Surg Social Fam HX - Past Medical History Medical history: arthritis, asthma, cardiomyopathy, coronary artery disease, GERD, hyperlipidemia, hypertension, myocardial infarction, renal disease, other Psychiatric history: no psych history - Past Surgical History Surgical History: angioplasty/stent, appendectomy, orthopedic, other, other - Social History Smoking Status: Never smoker Smokeless Tobacco Status: No Alcohol use: none Drug use: none - Family History Father Living Status: Hx Family Cardiac Disorders: Yes (defibulator, CHF, [place]) Mother Living Status: Still Living Hx Family Cardiac Disorders: Yes (triple bypass) Hx Family Cancer: Yes (breast cancer) Medications and Allergies Esomeprazole Magnesium [Nexium] 40 mg PO DAILY 07/23/16 [History] Aspirin 81 mg PO DAILY #60 tab.chew 07/24/16 [Rx] Nitroglycerin 0.4 mg SL Q5MIN PRN #30 tab.subl 07/24/16 [Rx] Losartan [Cozaar] 50 mg PO DAILY 10/29/16 [History] amLODIPine [Norvasc] 10 mg PO DAILY 10/29/16 [History] Carvedilol [Carvedilol] 3.125 mg PO BID 06/12/17 [History] Ticagrelor [Brilinta] 90 mg PO BID 06/12/17 [History] 3 Allergy/AdvReac Type Severity Reaction Status Date / Time No Known Allergies Allergy Verified 06/12/17 10:59 All Systems Review: A 10-system review of systems was performed and is negative for pertinent findings except as documented above in the HPI. Physical Examination Vital Signs, Last 4 Hours Temp Pulse Resp BP Pulse Ox 06/13/17 07:21 98.6 F 70 14 142/92 98 General: Conversant, No Apparent Distress HEENT: Atraumatic, Normocephaly, Mucus Membranes Moist Neck: No JVD, Normal carotid pulses Cardiac: Reg Rate and Rhythm, Normal S1 and S2, No Murmur Lungs: Normal Breath Sounds, No Wheeze, Rales, Rhonchi Neuro: Alert and responsive, No focal deficits noted Abdomen: Soft, Non-Tender Skin: No rashes noted on visualized skin Musculoskeletal: No Chest Wall Tenderness Extremities: No Clubbing, No Cyanosis, No Edema, Normal Pulses Results 06/13/17 00:21 06/13/17 00:21 Lab Results 06/12/17 06/13/17 06/13/17 17:36 00:21 00:21 WBC 8.7 Hgb 13.9 Hct 39.9 Plt Count 267 Sodium Potassium Chloride Carbon Dioxide BUN Creatinine Glucose Calcium Troponin I 0.00 0.00 06/13/17 00:21 WBC Hgb Hct Plt Count Sodium 138 Potassium 4.5 Chloride 107 Carbon Dioxide 22 BUN 18 Creatinine 1.25 Glucose 97 Calcium 9.2 Troponin I - EKG Interpretation EKG results cardiology: personally reviewed (NSR, no acute ST or T wave changes. ) Consult Discharge Plan - Plan Referrals: Rogerio Mccarthy MD [Primary Care Provider] -
[2017-06-13] MEDS: *HR* Ticagrelor 90 MG TABLET PO SCH (10:42)
[2017-06-13 11:53] VITALS: BP 130/88
--- NOTE | 2017-06-13 16:21 | Discharge Summary ---
Date of Encounter: 06/13/17 Time of Encounter: 12:30 - Discharge Diagnosis (1) DVT prophylaxis Priority: Secondary Status: Acute Comments: Heparin sQ (2) Ureteral stone with hydronephrosis Priority: Secondary Status: Acute Comments: He states that he feels better, was admitted with abdominal pain nausea and vomiting. CT abdomen and pelvis showed severe right-sided hydronephrosis. Dr. Anderson has evaluated patient. There is no surgical intervention needed at this time. He will follow-up in the office (3) CAD (coronary artery disease), [place] coronary artery Priority: Secondary Status: Chronic Comments: Patient had stent placed in October. Continue aspirin, statin, beta colten. Qualifiers: [place] vs. transplanted heart: [place] heart Associated angina: with stable angina Qualified Code(s): I25.118 - Atherosclerotic heart disease of [place] coronary artery with other forms of angina pectoris (4) Dyslipidemia Priority: Secondary Status: Chronic Comments: Continue statin. (5) GERD (gastroesophageal reflux disease) Priority: Secondary Status: Chronic Comments: Chronic. Continue home medications. Qualifiers: Esophagitis presence: esophagitis presence not specified Qualified Code(s) : K21.9 - Gastro-esophageal reflux disease without esophagitis - Discharge Medications Home Medications: Esomeprazole Magnesium [Nexium] 40 mg PO DAILY 07/23/16 [History] Aspirin 81 mg PO DAILY #60 tab.chew 07/24/16 [Rx] Nitroglycerin 0.4 mg SL Q5MIN PRN #30 tab.subl 07/24/16 [Rx] Losartan [Cozaar] 50 mg PO DAILY 10/29/16 [History] amLODIPine [Norvasc] 10 mg PO DAILY 10/29/16 [History] Carvedilol 3.125 mg PO BID 06/12/17 [History] Ticagrelor [Brilinta] 90 mg PO BID 06/12/17 [History] Allergies/Adverse Reactions: 3 Allergy/AdvReac Type Severity Reaction Status Date / Time No Known Allergies Allergy Verified 06/12/17 10:59 Date of admission: 06/12/17 15:00 Primary care physician: Rogerio Mccarthy MD Discharging clinician: Alexus Fuchs Anticipated date of discharge: 06/13/17 - Patient Status Disposition: Home, Self-Care Condition: Fair - Discharge Instructions Instructions: Chest Pain (DC) Follow Up With: Rogerio Mccarthy MD [Primary Care Provider] - Hospital course: Mr. Hayes is a 57 year old male with past medical history of hyperlipidemia, hypertension, chest pain, coronary artery disease with stent placement 2 months ago, renal calculi. He presented to the emergency department plates of fatigue , intermittent chest pain, abdominal pain, nausea and vomiting. Patient reports he been feeling tired and fatigued for the last couple weeks and has had intermittent chest pain, describing a sharp, lasting less than 1 minute. He also reports nausea and vomiting in the afternoon for left couple of days. This reported abdominal pain but denies any fever, chills sweats, denies any dysuria, diarrhea, hernia, or palpitations. CT of abdomen and pelvis in the emergency department showed severe right-sided hydronephrosis with a 10 x 14 mm proximal right ureteral stone. He was seen by urology there is no surgical intervention needed at this time. He will follow-up in the office. She was evaluated by cardiology for chest pain., They have signed off and recommended patient have no other workup at this time. Chest x-ray was negative. Vital signs and labs are within normal limits. Patient was stable for discharge and stated he needed to leave due to the fact that his grandchild was just [facility] to [facility] and he needed to go see her. He was stable for discharge. Time spent discussing smoking cessation with patient: 3 to 10 minutes - Time Spent with Patient Total time spent providing and/or coordinating discharge services: Less than 30 minutes - Constitutional Vitals: Temp Pulse Resp BP Pulse Ox 98.8 F 77 15 130/88 98 06/13/17 11:52 06/13/17 11:52 06/13/17 11:52 06/13/17 11:52 06/13/17 11:52 General appearance: Present: A&O X 3, no acute distress
--- NOTE | 2017-06-15 21:24 | Electrocardiograph Report ---
[place] [id number] Test Date: 2017-06-12 Pat Name: Jamal Hayes Department: 102 Room: 3B Gender: M Home Agent: : 1960 Requested By: Dante Church Order Number: [id number] Reading MD: Ludwin May MD Measurements Intervals [place] Rate: 79 P: 48 ME: 151 QRS: 23 QRSD: 82 T: 33 QT: 352 QTc: 387 Interpretive Statements SINUS RHYTHM Electronically Signed On 06-15-2017 21:23:09 EDT by Ludwin May MD
== END 2017-06-13 12:44 | disposition home or self-care (01) ==
LOC: EMEROO 10:56 → 3BNU 10:56
PROVIDERS: ADMIT Internal Medicine; ATTEND Registered Nurse

== ENCOUNTER 2018-08-09 14:57 | Observation (INO) ==
--- NOTE | 2018-08-09 15:32 | Emergency Department Note ---
Disposition Clinical Impression: Symptomatic bradycardia Disposition: Admitted As Inpatient Condition: Good Instructions: Bradycardia (ED) Reasons to Return/Additional Instructions: Follow-up with cardiology at the information given, call tomorrow for next available appointment to discuss slow heart rate, further evaluation with echocardiogram and possible pacemaker defibrillator. Return sooner to the ER for any new or worsening symptoms such as lightheadedness, dizziness, chest pain, shortness of breath. Also return sooner to the ER if you change your mind about today's decision of leaving against medical advice. Referrals: Rogerio Mccarthy MD [Primary Care Provider] - [facility] [Provider Group] Forms: ED Satisfaction Letter Time of Disposition: 17:26 Arrhythmia/Palpitations HPI - General Chief Complaint: ED Arrhythmia/Palpitations Stated Complaint: "marky"-from Dr Mccarthy Time Seen by Provider: 08/09/18 15:05 Source: patient, EMS Mode of arrival: EMS Limitations: no limitations Nursing Notes Reviewed: Yes Vital Signs Reviewed: Yes - History of Present Illness HPI Narrative: Patient is a 58-year-old male with past medical history of hypertension, previous [place] 2 and stent placement 2 in 2014 and 2016, HLD. He presents today due to bradycardia as a referral from his primary care physician . He states that he woke up this morning and had some mild lightheadedness, mild shortness of breath and states that this went away as the day progressed. 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 He followed up with his primary care physician today and was noted to havE a heart rate in the 30s. Patient was stable blood pressure at that time. He was referred here for further care. Patient denies any other recent chest pain, nausea, vomiting, fevers, diarrhea, abdominal pain, dysuria, hematuria, any numbness, tingling, weakness. Denies any history of any similar heart rate, any new medications other than sildenafil. He is on carvedilol and Norvasc. Denies taking any extra medicine, denies any other new medications. - Related Data Home Medications Medication Instructions Recorded Confirmed Esomeprazole Magnesium [Nexium] 40 mg PO DAILY 07/23/16 07/21/17 Carvedilol 3.125 mg PO BID 06/12/17 07/21/17 Ticagrelor [Brilinta] 90 mg PO BID 06/12/17 07/21/17 Amlodipine Besylate 10 mg PO DAILY 07/07/17 07/21/17 Aspirin 81 mg PO HS 07/07/17 07/21/17 Losartan Potassium [Cozaar] 50 mg PO DAILY 07/07/17 07/21/17 Previous Rx's Medication Instructions Recorded Nitroglycerin 0.4 mg SL Q5MIN PRN #30 tab.subl 07/24/16 HYDROcodone/Acet 5/325 mg [[place] 1 tab PO Q4H PRN #15 tab 07/21/17 5-325 mg] Phenazopyridine HCl [Pyridium] 200 mg PO TIDAC PRN #15 tab 07/21/17 Allergies Allergy/AdvReac Type Severity Reaction Status Date / Time No Known Allergies Allergy Verified 07/21/17 09:50 All systems ED: reviewed and negative except as stated. Constitutional: Denies: fever Cardiovascular: Denies: chest pain, palpitations Respiratory: Reports: dyspnea. Denies: cough, wheezes, sputum production Gastrointestinal: Denies: abdominal pain, nausea, vomiting, diarrhea Genitourinary: Denies: urgency, dysuria Integumentary: Denies: rash Neurological: Denies: headache, weakness, numbness Past Medical History - Past Medical History Attestation: Yes The following information was validated with the patient. Source: patient Medical history: Reports: arthritis, cardiomyopathy, coronary artery disease, GERD, hyperlipidemia, hypertension, myocardial infarction, renal disease, other Surgical history: Reports: angioplasty/stent, appendectomy, orthopedic, other, other Psychiatric history: Reports: no psych history - Social History Smoking Status: Former smoker Smokeless Tobacco Status: No Alcohol use: Reports: none Drug use: Reports: none Physical Exam - General General appearance: alert - Head Head exam: atraumatic, normocephalic, normal inspection - Eye Eye exam: Present: normal appearance, PERRL, EOMI - ENT ENT exam: normal exam, normal oropharynx, mucous membranes moist - Neck Neck exam: Present: normal inspection, full ROM, trachea midline - Chest Chest inspection: Present: normal inspection, symmetric chest wall rise - Respiratory Respiratory exam: Present: normal lung sounds bilaterally - Cardiovascular Cardiovascular exam: Present: normal rhythm, bradycardia (Rate of 30-40), normal heart sounds. Absent: systolic murmur, diastolic murmur - Abdominal Exam Abdominal exam: Present: soft, Non-Tender. Absent: tenderness, distention, guarding, rebound, rigidity - Extremities Exam Extremities exam: Present: normal inspection, full ROM. Absent: tenderness, pedal edema - Neurological Exam Neurological exam: Present: alert, oriented X3, CN II-XII intact. Absent: motor sensory deficit - Psychiatric Psychiatric exam: Present: normal affect, normal mood - Skin Skin exam: Present: warm, dry, intact, normal color Course Course Narrative: Heart rate of 30. Blood pressure stable with systolic blood pressure in the 140 s systolic. Otherwise, the rest of the vitals within normal limits. EKG performed and reveals a heart rate of 106, however, I believe that this is air and picking of action beats as on physical exam pulse and auscultation of the heart shows a rate more in the 30s to 40s. Otherwise, the rest of the physical exam was fairly benign. Patient currently states that he has no symptoms. However, he did have symptoms of lightheadedness and shortness of breath earlier in the day. EKG does show bradycardia with PVCs, concern for possible bigeminy. EKG 08/09/20 1815:21. Heart rate around 30. NE 125. QRS 93. QTC 340. Normal axis. No acute ST elevation or depression. 17:11 labs show no major electrolyte abnormality. Troponin negative. TSH within normal limits. Chest x-ray shows stable mild enlargement of the cardiac silhouette but no other acute cardiopulmonary process. I discussed the EKG, nursery attendant Dr. Tan reviewed EKGs, we also went over presentation, vitals, lab results. He recommended that we admit the patient under hospitalist service, obtain echocardiogram, and then he will act as a consult for the patient. After discussing this with the patient and, patient states that he does not want to come in for further care. We discussed that the patient needed to be evaluated by cardiology due to his slow heart rate, likely pacemaker/defibrillator placement, echocardiogram. He stated that he understood this and still wanted to go home. We went over that we could provide services of stabilization of heart rate, blood pressure, prevent any irregular rhythms w ith pacer defibrillator placement, possibly prevent . We discussed risk of worsening heart rate, worsening blood pressure, worsening mental status, stroke, even , permanent disability. He stated that he understood the risk. Medical student was in the room with me along with the . Patient understood the risk and benefits and was of capacity to make decision of going home. We will have the patient sign out AGAINST MEDICAL ADVICE. We will give the patient cardiology follow-up with strong encouragement to call tomorrow for next available appointment and to return to the ED if he changes his mind for any new or worsening symptoms. 17:26 cardiology has come to bedside at this time. They spoke personally with the patient. I did talk with the patient, he is now agreeable with coming in for echocardiogram. He does state that he will refuse if pacemaker defibrillator is offered. Patient has been accepted for admission at this time. Chest X-Ray 08/09/18 15:31 IMPRESSION: 1. Stable mild enlargement of the cardiac silhouette. No superimposed acute pulmonary abnormality. D/ / Usama Alfred MD / Usama Alfred MD Interpreting Provider: Usama Alfred MD Vital Signs Temperature 97.8 F 08/09/18 15:02 Pulse Rate 39 08/09/18 15:02 Respiratory Rate 20 08/09/18 15:02 Blood Pressure 148/86 08/09/18 15:02 O2 Sat by Pulse Oximetry 99 08/09/18 15:02 Temperature 97.8 F 08/09/18 15:20 Pulse Rate 87 08/09/18 15:20 Respiratory Rate 16 08/09/18 15:20 Blood Pressure 148/86 08/09/18 15:20 O2 Sat by Pulse Oximetry 99 08/09/18 15:20 Oxygen Delivery Oxygen Delivery Room Air Arrhythmia/Palpitations - MDM Narrative Medical decision making narrative: Heart rate of 30. Blood pressure stable with systolic blood pressure in the 140s systolic. Otherwise, the rest of the vitals within normal limits. EKG performed and reveals a heart rate of 106, however, I believe that this is air and picking of action beats as on physical exam pulse and auscultation of the heart shows a rate more in the 30s to 40s. Otherwise, the rest of the physical exam was fairly benign. Patient currently states that he has no symptoms. However, he did have symptoms of lightheadedness and shortness of breath earlier in the day. EKG does show bradycardia with PVCs, concern for possible bigeminy. EKG 08/09/20 1815:21. Heart rate around 30. NE 125. QRS 93. QTC 340. Normal axis. No acute ST elevation or depression. 17:11 labs show no major electrolyte abnormality. Troponin negative. TSH within normal limits. Chest x-ray shows stable mild enlargement of the cardiac silhouette but no other acute cardiopulmonary process. I discussed the EKG, nursery attendant Dr. Tan reviewed EKGs, we also went over presentation, vitals, lab results. He recommended that we admit the patient under hospitalist service, obtain echocardiogram, and then he will act as a consult for the patient. After discussing this with the patient and, patient states that he does not want to come in for further care. We discussed that the patient needed to be evaluated by cardiology due to his slow heart rate, likely pac emaker/defibrillator placement, echocardiogram. He stated that he understood this and still wanted to go home. We went over that we could provide services of stabilization of heart rate, blood pressure, prevent any irregular rhythms with pacer defibrillator placement, possibly prevent . We discussed risk of worsening heart rate, worsening blood pressure, worsening mental status, stroke, even , permanent disability. He stated that he understood the risk. Medical student was in the room with me along with the . Patient understood the risk and benefits and was of capacity to make decision of going home. We will have the patient sign out AGAINST MEDICAL ADVICE. We will give the patient cardiology follow-up with strong encouragement to call tomorrow for next available appointment and to return to the ED if he changes his mind for any new or worsening symptoms. 17:26 cardiology has come to bedside at this time. They spoke personally with the patient. I did talk with the patient, he is now agreeable with coming in for echocardiogram. He does state that he will refuse if pacemaker defibrillator is offered. Patient has been accepted for admission at this time. - Medical Records Medical records reviewed: Yes I reviewed the patient's medical records. - Lab Data Lab results reviewed: Yes I reviewed the patient's lab results. Result diagrams: 08/09/18 15:38 08/09/18 15:38 Lab Results 08/09/18 08/09/18 08/09/18 Range/Units 15:38 15:38 15:38 WBC 10.2 (4.3-11.1) K/mcL RBC 4.74 (4.19-5.50) M/mcL Hgb 15.7 (12.9-16.9) g/dL Hct 45.0 (37.5-50.1) % MCV 94.9 (83.0-100.0) fL MCH 33.1 (28.0-33.3) pg MCHC 34.9 (31.6-35.5) g/dL RDW 12.3 (11.5-14.5) % Plt Count 243 (140-400) K/mcL MPV 9.9 (9.4-12.4) fL Immature Gran % 0.3 (0-4) % Seg Neutrophils % 50.7 % Lymphocytes % 38.2 % Monocytes % 7.4 % Eosinophils % 2.8 % Basophils % 0.6 % Neutrophils # 5.2 (1.6-8.9) K/mcL Lymphocytes # 3.9 (0.6-4.6) K/mcL Monocytes # 0.8 (0.0-1.3) K/mcL Eosinophils # 0.3 (0.0-0.6) K/mcL Basophils # 0.1 (0.0-0.2) K/mcL PT 11.8 (9.4-12.1) Seconds INR 1.0 APTT 32.4 (26.0-36.0) Seconds Sodium 138 (136-145) mEq/L Potassium 4.2 (3.5-5.1) mEq/L Chloride 105 (98-107) mEq/L Carbon Dioxide 26 (23-29) mEq/L BUN 18 (6-20) mg/dL Creatinine 0.98 (0.70-1.30) mg/dL Est GFR ( Amer) > 60 (> 60) Est GFR (Non-Af Amer) > 60 (> 60) BUN/Creatinine Ratio 18 (6-26) Glucose 99 (70-105) mg/dL Calculated Osmolality 288 (280-300) Calcium 9.4 (8.6-10.3) mg/dL Magnesium 2.3 (1.6-2.6) mg/dL Troponin I < 0.03 (< 0.04) ng/mL TSH 1.966 (0.340-5.600) mcIU/mL - Radiology Data Radiology results reviewed: Yes I reviewed the patient's radiology results. - EKG Data EKG attestation: Yes I reviewed and interpreted this EKG. S.B.A.R. - S.B.A.R. Situation: Demographics, MOA Background: Presenting Complaint, Relevant PMH, Meds, & Allergies Assessment: Vital Signs, Course and respsone to treatment, Exam Concerns, Patient/Family Expectation, Pertinant Lab Results Recommendation: Barrier(s) to disposition, Recommendation based on pending studies, treatments, or consults S.B.A.R. Report Given to: Dr. Mae
--- NOTE | 2018-08-09 15:56 | Emergency Department Note ---
Disposition Clinical Impression: Symptomatic bradycardia Disposition: Still a Patient Referrals: Rogerio Mccarthy MD [Primary Care Provider] - Forms: ED Satisfaction Letter General Adult HPI - General Chief complaint: ED Arrhythmia/Palpitations Stated complaint: "marky"-from Dr Mccarthy Time Seen by Provider: 08/09/18 15:05 Source: patient, EMS Mode of arrival: EMS Limitations: no limitations Nursing Notes Reviewed: Yes Vital Signs Reviewed: Yes - History of Present Illness HPI Narrative: ED attending attestation note: I examined this patient and my medical decision-making was reviewed with the emergency medicine resident DR LYNDSEY KISER. I agree with the documented findings, disposition and treatment plan as described except to the extent set forth below. Briefly: 58-year-old male history of coronary artery disease with 2 prior cardiac stents presents with feeling lightheaded and dizzy at work. He is a general office assistant. EKG shows a regular irregular heartbeat EKG repeated at 10 weight however there is occasional premature complexes and parent sees when you actually feels pulsatile like 30-40. Were concerned that he has severe symptomatically bradycardia and might require EP evaluation and pacemaker placement. Patient would like for us to consult with his hand inserter operator Dr. Che. Dr. Che is being paged. Screening labs and x-rays are pending. Disposition pending Pain Scale: 0 - Related Data Home Medications Medication Instructions Recorded Confirmed Esomeprazole Magnesium [Nexium] 40 mg PO DAILY 07/23/16 07/21/17 Carvedilol 3.125 mg PO BID 06/12/17 07/21/17 Ticagrelor [Brilinta] 90 mg PO BID 06/12/17 07/21/17 Amlodipine Besylate 10 mg PO DAILY 07/07/17 07/21/17 Aspirin 81 mg PO HS 07/07/17 07/21/17 Losartan Potassium [Cozaar] 50 mg PO DAILY 07/07/17 07/21/17 Previous Rx's Medication Instructions Recorded Nitroglycerin 0.4 mg SL Q5MIN PRN #30 tab.subl 07/24/16 HYDROcodone/Acet 5/325 mg [[place] 1 tab PO Q4H PRN #15 tab 07/21/17 5-325 mg] Phenazopyridine HCl [Pyridium] 200 mg PO TIDAC PRN #15 tab 07/21/17 Allergies Allergy/AdvReac Type Severity Reaction Status Date / Time No Known Allergies Allergy Verified 07/21/17 09:50 Constitutional: Denies: fever Cardiovascular: Denies: chest pain, palpitations Respiratory: Reports: dyspnea. Denies: cough, wheezes, sputum production Gastrointestinal: Denies: abdominal pain, nausea, vomiting, diarrhea Genitourinary: Denies: urgency, dysuria Integumentary: Denies: rash Neurological: Denies: headache Past Medical History - Past Medical History Medical history: Reports: arthritis, cardiomyopathy, coronary artery disease, GERD, hyperlipidemia, hypertension, myocardial infarction, renal disease, other Surgical history: Reports: angioplasty/stent, appendectomy, orthopedic, other, other Psychiatric history: Reports: no psych history - Social History Smoking Status: Former smoker Smokeless Tobacco Status: No Alcohol use: Reports: none Drug use: Reports: none Physical Exam - General Limitations: no limitations General appearance: alert Course Vital Signs Temperature 97.8 F 08/09/18 15:02 Pulse Rate 39 08/09/18 15:02 Respiratory Rate 20 08/09/18 15:02 Blood Pressure 148/86 08/09/18 15:02 O2 Sat by Pulse Oximetry 99 08/09/18 15:02 Temperature 97.8 F 08/09/18 15:20 Pulse Rate 87 08/09/18 15:20 Respiratory Rate 16 08/09/18 15:20 Blood Pressure 148/86 08/09/18 15:20 O2 Sat by Pulse Oximetry 99 08/09/18 15:20 Oxygen Delivery Oxygen Delivery Room Air
[2018-08-09 16:00] LABS: Basophils # 0.1 K/mcL (0.0-0.2); Basophils % 0.6 %; Eosinophils # 0.3 K/mcL (0.0-0.6); Eosinophils % 2.8 %; Hemoglobin 15.7 g/dL (12.9-16.9); Immature Granulocytes % 0.3 % (0-4); Lymphocytes # 3.9 K/mcL (0.6-4.6); Lymphocytes % 38.2 %; Mean Corpuscular HGB Conc 34.9 g/dL (31.6-35.5); Mean Corpuscular Hemoglobin 33.1 pg (28.0-33.3); Mean Corpuscular Volume 94.9 fL (83.0-100.0); Mean Platelet Volume 9.9 fL (9.4-12.4); Monocytes # 0.8 K/mcL (0.0-1.3); Monocytes % 7.4 %; Neutrophils # 5.2 K/mcL (1.6-8.9); Platelet Count 243 K/mcL (140-400); Red Blood Count 4.74 M/mcL (4.19-5.50); Red Cell Distribution Width 12.3 % (11.5-14.5); Segmented Neutrophils % 50.7 %
[2018-08-09 16:10] LABS: Prothrombin Time 11.8 Seconds (9.4-12.1)
[2018-08-09 16:13] LABS: Activated Partial Thrombo Time 32.4 Seconds (26.0-36.0)
[2018-08-09 16:19] LABS: BUN/Creatinine Ratio 18 (6-26); Blood Urea Nitrogen 18 mg/dL (6-20); Calcium 9.4 mg/dL (8.6-10.3); Carbon Dioxide 26 mEq/L (23-29); Chloride 105 mEq/L (98-107); Glucose 99 mg/dL (70-105); Magnesium 2.3 mg/dL (1.6-2.6); Osmolality,Calculated 288 (280-300); Potassium 4.2 mEq/L (3.5-5.1); Sodium 138 mEq/L (136-145); eGFR For Non-African Americans > 60 (> 60)
[2018-08-09 16:20] LABS: Troponin I < 0.03 ng/mL (< 0.04)
[2018-08-09 16:33] LABS: Thyroid Stimulating Hormone 1.966 mcIU/mL (0.340-5.600)
--- NOTE | 2018-08-09 17:09 | Electrocardiograph Report ---
Test Date: 2018-08-09 Pat Name: Jamal Hayes Department: EXAM6 Room: Gender: M Speech Communication Professor: : 1960 Requested By: Murali Jiang Order Number: [id number] Reading MD: Deshawn Tan Measurements Intervals [place] Rate: 106 P: 54 [place]: 125 QRS: 49 QRSD: 93 T: 25 QT: 365 QTc: 340 Interpretive Statements Sinus tachycardia Ventricular bigeminy Prominent P waves, nondiagnostic Abnormal R-wave progression, early transition Minimal ST depression, inferior leads Electronically Signed On 08-09-2018 17:07:25 EST by Deshawn Tan
--- NOTE | 2018-08-09 17:31 | Cardiology Consult Note ---
Date of Encounter: 08/09/18 Time of Encounter: 17:20 Assessment and Plan (1) Ventricular bigeminy Current Visit: Yes Status: Acute EKG shows sinus tachycardia with ventricular bigeminy. Recommend to monitor patient on telemetry overnight and obtain echocardiogram. Obtain urine toxicology and thyroid function test. (2) CAD (coronary artery disease), [place] coronary artery Current Visit: No Status: Chronic Continue aspirin, Brillinta, Coreg losartan, statin Qualifiers: [place] vs. transplanted heart: [place] heart Associated angina: with stable angina Qualified Code(s): I25.118 - Atherosclerotic heart disease of [place] coronary artery with other forms of angina pectoris (3) Hypertension Current Visit: Yes Status: Acute Qualifiers: Qualified Code(s): I10 - Essential (primary) hypertension (4) Hypertension goal BP (blood pressure) < 130/80 Current Visit: Yes Status: Acute Continue amlodipine 10 mg daily, losartan 50 mg daily (may be increased to 100 mg daily) Discussion w patient/family: The assessment and plan as outlined above was discussed with the patient and/or family members who expressed understanding and agreement. All questions were answered. Thank you for involving us in the care of your patient. Please call with any questions. History of Present Illness Consult date: 08/09/18 Requesting physician: Zeke Blake Consult reason: Abnormal EKG History of present illness: Mr. Hayes is a 58 year old male Mr. Hayes is a very pleasant 58-year-old gentleman who was sent from his PCPs office on account of "low heart rate" on manual palpation of the radial pulse. 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 He has history of CAD status post [facility] on 10/29/16 patent stent in proximal RCA and 90% mid LAD stenosis which was stented. Echo in 07/29/15 showed EF of 50% with mild diastolic dysfunction. At the time of my interview he denies dizziness or lightheadedness or palpitations. No chest pain or shortness of breath. Past Med Surg Social Fam HX - Past Medical History Medical history: arthritis, cardiomyopathy, coronary artery disease, GERD, hyperlipidemia, hypertension, myocardial infarction, renal disease, other Psychiatric history: no psych history - Past Surgical History Surgical History: angioplasty/stent, appendectomy, orthopedic, other, other Additional surgical history: CARDIAC STENT X 1 08-12, 2 cardiac stents 10/2016, DC 2016, RIGHT SHOULDER SURGERY 2003, SHOULDER SPUR SURGERY 2004 - Social History Smoking Status: Former smoker Smokeless Tobacco Status: No Alcohol use: none Drug use: none - Family History Father Living Status: Hx Family Cardiac Disorders: Yes (defibulator, CHF, DC) Mother Living Status: Still Living Hx Family Cardiac Disorders: Yes (triple bypass) Hx Family Cancer: Yes (breast cancer) Medications and Allergies Esomeprazole Magnesium [Nexium] 40 mg PO DAILY 07/23/16 [History] Nitroglycerin 0.4 mg SL Q5MIN PRN #30 tab.subl 07/24/16 [Rx] Carvedilol 3.125 mg PO BID 06/12/17 [History] Ticagrelor [Brilinta] 90 mg PO BID 06/12/17 [History] Amlodipine Besylate 10 mg PO DAILY 07/07/17 [History] Aspirin 81 mg PO HS 07/07/17 [History] Amoxicillin 875 mg PO DAILY 08/09/18 [History] Losartan [Cozaar] 25 mg PO DAILY 08/09/18 [History] Montelukast [Singulair] 10 mg PO DAILY 08/09/18 [History] Allergy/AdvReac Type Severity Reaction Status Date / Time No Known Allergies Allergy Verified 07/21/17 09:50 All Systems Review: The remainder of the systems were reviewed and are negative - Constitutional Constitutional: no anorexia, no fever(s), no night sweats - EENT Eyes: no blurred vision Nose, mouth and throat: no bleeding gums - Cardiovascular Cardiovascular: no chest pain at rest, no chest pain with exertion, no dyspnea on exertion, no irregular heart rhythm, no orthopnea, no palpitations, no syncope - Respiratory Respiratory: no cough, no wheezing - Gastrointestinal Gastrointestinal: no abdominal pain - Genitourinary Genitourinary: no dysuria - Musculoskeletal Musculoskeletal: no abnormal gait - Integumentary Integumentary: no erythema - Neurological Neurological: no abnormal speech - Psychiatric Psychiatric: no anxiety - Hematological/Lymphatic Hematologic/Lymphatic: no easy bleeding Physical Examination Vital Signs, Last 4 Hours Temp Pulse Resp BP Pulse Ox 08/09/18 15:20 97.8 F 87 16 148/86 99 08/09/18 15:02 97.8 F 39 20 148/86 99 General: Conversant HEENT: Atraumatic Neck: No JVD, Normal carotid pulses Cardiac: Reg Rate and Rhythm, Normal S1 and S2, No Murmur Lungs: Normal Breath Sounds, No Wheeze, Rales, Rhonchi Neuro: Alert and responsive, No focal deficits noted Abdomen: Soft Musculoskeletal: No Chest Wall Tenderness Extremities: No Edema Results 08/09/18 15:38 08/09/18 15:38 Lab Results 08/09/18 08/09/18 08/09/18 15:38 15:38 15:38 WBC 10.2 Hgb 15.7 Hct 45.0 Plt Count 243 INR 1.0 APTT 32.4 Sodium 138 Potassium 4.2 Chloride 105 Carbon Dioxide 26 BUN 18 Creatinine 0.98 Glucose 99 Calcium 9.4 Magnesium 2.3 Troponin I < 0.03 TSH 1.966 Consult Discharge Plan - Plan Instructions: Bradycardia (ED) Additional Instructions: Follow-up with cardiology at the information given, call tomorrow for next available appointment to discuss slow heart rate, further evaluation with echocardiogram and possible pacemaker defibrillator. Return sooner to the ER for any new or worsening symptoms such as lightheadedness, dizziness, chest pain, shortness of breath. Also return sooner to the ER if you change your mind about today's decision of leaving against medical advice. Referrals: [facility] [Provider Group] Rogerio Mccarthy MD [Primary Care Provider] -
--- NOTE | 2018-08-09 17:44 | Internal Med Progress Note ---
Hospitalist Progress Note - Encounter Date of Encounter: 08/09/18 - Exam Vitals: Temp Pulse Resp BP Pulse Ox 97.8 F 87 16 148/86 99 08/09/18 15:20 08/09/18 15:20 08/09/18 15:20 08/09/18 15:20 08/09/18 15:20 - Time Spent with Patient Total time spent is greater than 50% in coordination of care (as documented) at patient's floor/unit and/or counseling patient: Internal Medicine: Result - Labs CBC & Chem 7: 08/09/18 15:38 08/09/18 15:38 Labs: Short CBC 08/09/18 Range/Units 15:38 WBC 10.2 (4.3-11.1) K/mcL Hgb 15.7 (12.9-16.9) g/dL Hct 45.0 (37.5-50.1) % Plt Count 243 (140-400) K/mcL Neutrophils # 5.2 (1.6-8.9) K/mcL BMP 08/09/18 15:38 Sodium 138 Potassium 4.2 Chloride 105 Carbon Dioxide 26 BUN 18 Creatinine 0.98 Glucose 99 Calcium 9.4 Cardiac Enzymes 08/09/18 Range/Units 15:38 Troponin I < 0.03 (< 0.04) ng/mL - ABG Interpretation ABG results: PT/INR, D-dimer PT 11.8 Seconds (9.4-12.1) 08/09/18 15:38 - Impressions Impressions Chest X-Ray 08/09/18 15:31 IMPRESSION: 1. Stable mild enlargement of the cardiac silhouette. No superimposed acute pulmonary abnormality. D/ / Usama Alfred MD / Usama Alfred MD Interpreting Provider: Usama Alfred MD Consult Discharge Plan - Plan Instructions: Bradycardia (ED) Additional Instructions: Follow-up with cardiology at the information given, call tomorrow for next available appointment to discuss slow heart rate, further evaluation with echocardiogram and possible pacemaker defibrillator. Return sooner to the ER for any new or worsening symptoms such as lightheadedness, dizziness, chest pain, shortness of breath. Also return sooner to the ER if you change your mind about today's decision of leaving against medical advice. Referrals: [facility] [Provider Group] Rogerio Mccarthy MD [Primary Care Provider] -
[2018-08-09] MEDS ORDERED: Nitroglycerin 0.4 MG TAB.SUBL SL PRN (18:18)
[2018-08-09] MEDS ORDERED: Naloxone 0.4 MG/ML INJ IVP PRN (18:24)
--- NOTE | 2018-08-09 18:41 | Internal Med History&Physical ---
Date of Encounter: 08/09/18 Time of Encounter: 18:41 Internal Medicine - H&P: HPI History of present illness: Patient is a 58 year old male with history of hypertension, ME x2, stents x2 in 2024. He presented per recommendation of primary care Dr. Mccarthy for bradycardia. 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 He denies any syncope, chest pain, shortness of breath, fevers, nausea/vomiting, palpitations. He then went to doctors office and told to come to ED. Per reports, in the [facility] Office, he had a HR running in 30s-40s bpm. He takes Carvedilol and Norvasc at home. He denies any current drug use, denies any recent medication changes. In the [facility] EKG did show some bradycardia, with ventricular bigeminy. Cardiology was consulted and will see patient. He is currently in no acute distress. Past Med Surg Social Fam HX - Past Medical History Medical history: arthritis, cardiomyopathy, coronary artery disease, GERD, hyperlipidemia, hypertension, myocardial infarction, renal disease, other Psychiatric history: no psych history - Past Surgical History Surgical History: angioplasty/stent, appendectomy, orthopedic, other, other Additional surgical history: CARDIAC STENT X 1 08-12, 2 cardiac stents 10/2016, [place] 2015, RIGHT SHOULDER SURGERY 2003, SHOULDER SPUR SURGERY 2004 - Social History Smoking Status: Former smoker Smokeless Tobacco Status: No Alcohol use: none Drug use: none - Family History Father Living Status: Hx Family Cardiac Disorders: Yes (defibulator, CHF, ME) Mother Living Status: Still Living Hx Family Cardiac Disorders: Yes (triple bypass) Hx Family Cancer: Yes (breast cancer) Internal Medicine - H&P: Meds Esomeprazole Magnesium [Nexium] 40 mg PO DAILY 07/23/16 [History] Nitroglycerin 0.4 mg SL Q5MIN PRN #30 tab.subl 07/24/16 [Rx] Carvedilol 3.125 mg PO BID 06/12/17 [History] Ticagrelor [Brilinta] 90 mg PO BID 06/12/17 [History] Amlodipine Besylate 10 mg PO DAILY 07/07/17 [History] Aspirin 81 mg PO HS 07/07/17 [History] Amoxicillin 875 mg PO DAILY 08/09/18 [History] Losartan [Cozaar] 25 mg PO DAILY 08/09/18 [History] Montelukast [Singulair] 10 mg PO DAILY 08/09/18 [History] Allergy/AdvReac Type Severity Reaction Status Date / Time No Known Allergies Allergy Verified 07/21/17 09:50 All Systems PM: A 10-system review of systems was performed and is negative for pertinent findings except as documented above in the HPI. - Constitutional Vitals: Temp Pulse Resp BP Pulse Ox 97.8 F 78 16 147/98 100 08/09/18 15:20 08/09/18 18:04 08/09/18 18:04 08/09/18 18:04 08/09/18 18:04 General appearance: Present: A&O X 3, no acute distress, obese Exam: . - Head Head exam: Present: atraumatic, normocephalic - Eye Eye exam: Present: PERRL, conjuntiva pink, sclera anicteric Pupils: Present: PERRL - Neck Neck exam general surgery: Present: supple, trachea midline. Absent: lymphadenopathy - Respiratory Respiratory exam: Present: CTAB. Absent: accessory muscle use, rales, rhonchi, wheezes - Cardiovascular Cardiovascular exam: Present: RRR, +S1, +S2. Absent: diastolic murmur, gallop, rubs, systolic murmur - GI/Abdominal GI/Abdominal exam: Present: normal bowel sounds, soft, no peritoneal signs. Absent: distended, tenderness - Extremities Exam Extremities exam: Present: warm, radial pulses palpable and symmetrical. Absent: calf tenderness, cyanotic, pedal edema - Neurological Exam Neurological exam: Present: CN II-XII intact, oriented X3, no focal deficits. Absent: pronater drift, facial droop, speech deficit - Skin Skin exam: Present: dry, intact Internal Med - H&P Results - Labs CBC & Chem 7: 08/09/18 15:38 08/09/18 15:38 Labs: Short CBC 08/09/18 Range/Units 15:38 WBC 10.2 (4.3-11.1) K/mcL Hgb 15.7 (12.9-16.9) g/dL Hct 45.0 (37.5-50.1) % Plt Count 243 (140-400) K/mcL Neutrophils # 5.2 (1.6-8.9) K/mcL BMP 08/09/18 15:38 Sodium 138 Potassium 4.2 Chloride 105 Carbon Dioxide 26 BUN 18 Creatinine 0.98 Glucose 99 Calcium 9.4 Cardiac Enzymes 08/09/18 Range/Units 15:38 Troponin I < 0.03 (< 0.04) ng/mL - Impressions ITS Impressions Chest X-Ray 08/09/18 15:31 IMPRESSION: 1. Stable mild enlargement of the cardiac silhouette. No superimposed acute pulmonary abnormality. D/ / Usama Alfred MD / Usama Alfred MD Interpreting Provider: Usama Alfred MD - Assessment and plan (1) Symptomatic bradycardia Current Visit: Yes Status: Acute Assessment and plan: Unsure cause as of now. Cardiology evaluated patient in ED. TSH and Urine drug screen pending. Echocardiogram pending. Hold Coreg for now and will be re evaluated by Cardiology. Currently on telemetry patient HR 80 bpm with normal BP. Currently denies chest pain, SOB. Dizziness resolved. (2) Hypertension Current Visit: Yes Status: Acute Qualifiers: Qualified Code(s): I10 - Essential (primary) hypertension (3) Ventricular bigeminy Current Visit: Yes Status: Acute (4) DVT prophylaxis Current Visit: No Status: Acute (5) CAD (coronary artery disease), [place] coronary artery Current Visit: No Status: Chronic Qualifiers: [place] vs. transplanted heart: [place] heart Associated angina: with stable angina Qualified Code(s): I25.118 - Atherosclerotic heart disease of [place] coronary artery with other forms of angina pectoris (6) CKD (chronic kidney disease) stage 3, GFR 30-59 ml/min Current Visit: No Status: Chronic (7) Dyslipidemia Current Visit: No Status: Chronic (8) GERD (gastroesophageal reflux disease) Current Visit: No Status: Chronic Qualifiers: Esophagitis presence: esophagitis presence not specified Qualified Code(s): K21.9 - Gastro-esophageal reflux disease without esophagitis (9) History of non-ST elevation myocardial infarction (NSTEMI) Current Visit: No Status: Chronic - Time Spent With Patient Total time spent is greater than 50% in coordination of care (as documented) at patient's floor/unit and/or counseling patient:
[2018-08-09] MEDS: *HR* Ticagrelor 90 MG TABLET PO SCH (20:57)
[2018-08-09] MEDS ORDERED: Aspirin 81 MG TAB.CHEW PO SCH (21:00)
[2018-08-10 01:39] LABS: Amphetamine Screen,Urine Negative ng/mL (Cutoff=1000); Barbiturate Screen,Urine Negative ng/mL (Cutoff=200); Benzodiazepines Screen,Urine Negative ng/mL (Cutoff=200); Cannabinoid Screen,Urine Positive ng/mL (Cutoff = 50); Cocaine Screen,Urine Negative ng/mL (Cutoff= 300); Opiate Screen,Urine Negative ng/mL (Cutoff=300); Phencyclidine Screen,Urine Negative ng/mL (Cutoff=25)
[2018-08-10 06:49] VITALS: BP 142/81
[2018-08-10] MEDS: *HR* Ticagrelor 90 MG TABLET PO SCH (08:49)
[2018-08-10] MEDS ORDERED: amLODIPine 5 MG TABLET PO SCH (09:00)
[2018-08-10] MEDS ORDERED: Amoxicillin 250 MG CHEWABLE TABLET PO SCH (09:00)
--- NOTE | 2018-08-10 12:38 | Internal Med Progress Note ---
Hospitalist Progress Note - Encounter Date of Encounter: 08/10/18 Time of Encounter: 12:36 - Subjective Interval History: Patient with history of hypertension, CAD, had an GA 2 in the past, high cholesterol, CK D patient was sent from primary physiscains office due to bradycardia and dizziness heart rate in 30-40 patient was on Coreg which is held and was seen by cardiology and 2-D echo was done which was unremarkable patient heart rate now is in the 70 and 80 sinus rhythm blood pressures also normal awaiting cardiology follow-up for clearance for discharge and follow-up appointment - Exam Vitals: Temp Pulse Resp BP Pulse Ox 97.8 F 83 15 142/81 96 08/10/18 05:38 08/10/18 06:46 08/10/18 05:38 08/10/18 06:46 08/10/18 06:46 Exam: . - Assessment and Plan (1) Bigeminy Current Visit: No Status: Resolved Assessment and Plan: Resolved patient currently in sinus rhythm (2) CAD (coronary artery disease), [place] coronary artery Current Visit: No Status: Chronic Assessment and Plan: No chest pain (3) Symptomatic bradycardia Current Visit: Yes Status: Acute Assessment and Plan: Coreg discontinued patient now in normal sinus rhythm (4) Ventricular bigeminy Current Visit: Yes Status: Acute Assessment and Plan: Patient now in normal sinus rhythm bigeminy probably due to bradycardia has not resolved (5) Hypertension Current Visit: Yes Status: Chronic Assessment and Plan: Chronic and well controlled - Time Spent with Patient Total time spent is greater than 50% in coordination of care (as documented) at patient's floor/unit and/or counseling patient: Internal Medicine: Result - Labs CBC & Chem 7: 08/09/18 15:38 08/09/18 15:38 Labs: Short CBC 08/09/18 Range/Units 15:38 WBC 10.2 (4.3-11.1) K/mcL Hgb 15.7 (12.9-16.9) g/dL Hct 45.0 (37.5-50.1) % Plt Count 243 (140-400) K/mcL Neutrophils # 5.2 (1.6-8.9) K/mcL BMP 08/09/18 15:38 Sodium 138 Potassium 4.2 Chloride 105 Carbon Dioxide 26 BUN 18 Creatinine 0.98 Glucose 99 Calcium 9.4 Cardiac Enzymes 08/09/18 Range/Units 15:38 Troponin I < 0.03 (< 0.04) ng/mL - ABG Interpretation ABG results: PT/INR, D-dimer PT 11.8 Seconds (9.4-12.1) 08/09/18 15:38 - Impressions Impressions Chest X-Ray 08/09/18 15:31 IMPRESSION: 1. Stable mild enlargement of the cardiac silhouette. No superimposed acute pulmonary abnormality. D/ / Usama Alfred MD / Usama Alfred MD Interpreting Provider: Usama Alfred MD Echocardiogram 08/10/18 19:23 Impressions: Technically challenging due to frequent PVCs. Grossly, LV systolic function appears normal but is estimation limited due to frequent PVCs. Indeterminate diastolic function. Normal right ventricular structure and function. Mild aortic regurgitation. Mild aortic stenosis. Mild-moderate mitral regurgitation. Mild tricuspid regurgitation. No pulmonary hypertension. Left Ventricular Wall Motion: Rest Echo Findings The mid anterior septal, mid inferior lateral, basal anterior septal and basal inferior lateral schultz were not visualized. All other wall segments showed normal motion. Findings: Study Quality * Technically challenging due to frequent PVCs. ECG Findings * Sinus rhythm with PVCs. Left Ventricle * Normal LV chamber size, wall thickness. * Indeterminate diastolic function. * Grossly normal LV systolic function. Right Ventricle * Normal right ventricular structure and function. Left Atrium * Normal left atrial size. Right Atrium * Normal right atrial size. Aortic Valve * Aortic valve not well visualized. * No aortic stenosis. * Mild aortic regurgitation. * Mild aortic stenosis. Mitral Valve * Normal mitral valve structure. * No mitral stenosis. * Mild-moderate mitral regurgitation. Tricuspid Valve * Normal tricuspid valve structure. * Mild tricuspid regurgitation. * Estimated RA pressure is 3 mmHg. * Estimated RVSP is 25 mmHg. * No pulmonary hypertension. Pulmonic Valve * Pulmonic valve is not well visualized. * No pulmonic stenosis. * No pulmonic regurgitation. Pulmonary Artery * Pulmonary artery not well visualized. Aorta * Normally sized aortic root. Pericardium * There is no pericardial effusion present. Interatrial Septum * No evidence of PFO by color Doppler. IVC * Normal IVC dimensions and inspiratory collapse. Consult Discharge Plan - Plan Referrals: Rogerio Mccarthy MD [Primary Care Provider] - (2) CAD (coronary artery disease), [place] coronary artery Qualifiers: [place] vs. transplanted heart: [place] heart Associated angina: with stable angina Qualified Code(s): I25.118 - Atherosclerotic heart disease of [place] coronary artery with other forms of angina pectoris (5) Hypertension Qualifiers: Hypertension type: essential hypertension Qualified Code(s): I10 - Essential (primary) hypertension
--- NOTE | 2018-08-10 14:19 | Cardiology Progress Note ---
Date of Encounter: 08/10/18 Time of Encounter: 13:30 Assessment and Plan (1) Ventricular bigeminy Current Visit: Yes Status: Acute Per cardiology: -EKG shows sinus tachycardia with ventricular bigeminy. -TSH, K, Mg within normal limits. -Average HR previous 12 hours noted to be 88. -BB had been held due to concerns of bradycardia, however no bradycardic event noted on telemetry. -TTE with LVEF appears preserved. -Denies symptoms currently. -Discussed and reviewed with , will add back BB. -Recommend holter monitor at discharge. -Cardiology will sign off and will follow in outpatient setting, follow up set. (2) CAD (coronary artery disease), [place] coronary artery Current Visit: No Status: Chronic Per cardiology: -Continue aspirin, Brillinta, Coreg losartan, statin Qualifiers: [place] vs. transplanted heart: [place] heart Associated angina: with stable angina Qualified Code(s): I25.118 - Atherosclerotic heart disease of [place] coronary artery with other forms of angina pectoris Discussion w patient/family: The assessment and plan as outlined above was discussed with the patient and/or family members who expressed understanding and agreement. All questions were answered. Thank you for involving us in the care of your patient. Please call with any questions. Discussed and reviewed with . Subjective Principal diagnosis: bigeminy Interval history: Patient denies complaints. Patient is anxious to go home. Objective Vital Signs Temperature 97.8 F 08/09/18 15:02 Pulse Rate 39 08/09/18 15:02 Respiratory Rate 20 08/09/18 15:02 Blood Pressure 148/86 08/09/18 15:02 O2 Sat by Pulse Oximetry 99 08/09/18 15:02 Temperature 97.8 F 08/10/18 05:38 Pulse Rate 83 08/10/18 06:46 Respiratory Rate 15 08/10/18 05:38 Blood Pressure 142/81 08/10/18 06:46 O2 Sat by Pulse Oximetry 96 08/10/18 06:46 Oxygen Delivery Oxygen Delivery Room Air General: Conversant, No Apparent Distress HEENT: Atraumatic, Normocephaly, Mucus Membranes Moist Neck: No JVD, Normal carotid pulses Cardiac: Reg Rate and Rhythm, Normal S1 and S2, No Murmur Lungs: Normal Breath Sounds, No Wheeze, Rales, Rhonchi Neuro: Alert and responsive, No focal deficits noted Abdomen: Soft, Non-Tender Skin: No rashes noted on visualized skin Musculoskeletal: No Chest Wall Tenderness Extremities: No Clubbing, No Cyanosis, No Edema, Normal Pulses Results 08/09/18 15:38 08/09/18 15:38 Lab Results Impressions Chest X-Ray 08/09/18 15:31 IMPRESSION: 1. Stable mild enlargement of the cardiac silhouette. No superimposed acute pulmonary abnormality. D/ / Usama Alfred MD / Usama Alfred MD Interpreting Provider: Usama Alfred MD Echocardiogram 08/10/18 19:23 Impressions: Technically challenging due to frequent PVCs. Grossly, LV systolic function appears normal but is estimation limited due to frequent PVCs. Indeterminate diastolic function. Normal right ventricular structure and function. Mild aortic regurgitation. Mild aortic stenosis. Mild-moderate mitral regurgitation. Mild tricuspid regurgitation. No pulmonary hypertension. Left Ventricular Wall Motion: Rest Echo Findings The mid anterior septal, mid inferior lateral, basal anterior septal and basal inferior lateral schultz were not visualized. All other wall segments showed normal motion. Findings: Study Quality * Technically challenging due to frequent PVCs. ECG Findings * Sinus rhythm with PVCs. Left Ventricle * Normal LV chamber size, wall thickness. * Indeterminate diastolic function. * Grossly normal LV systolic function. Right Ventricle * Normal right ventricular structure and function. Left Atrium * Normal left atrial size. Right Atrium * Normal right atrial size. Aortic Valve * Aortic valve not well visualized. * No aortic stenosis. * Mild aortic regurgitation. * Mild aortic stenosis. Mitral Valve * Normal mitral valve structure. * No mitral stenosis. * Mild-moderate mitral regurgitation. Tricuspid Valve * Normal tricuspid valve structure. * Mild tricuspid regurgitation. * Estimated RA pressure is 3 mmHg. * Estimated RVSP is 25 mmHg. * No pulmonary hypertension. Pulmonic Valve * Pulmonic valve is not well visualized. * No pulmonic stenosis. * No pulmonic regurgitation. Pulmonary Artery * Pulmonary artery not well visualized. Aorta * Normally sized aortic root. Pericardium * There is no pericardial effusion present. Interatrial Septum * No evidence of PFO by color Doppler. IVC * Normal IVC dimensions and inspiratory collapse. Active Medications Amlodipine Besylate (Norvasc) 10 mg PO DAILY [facility] Stop: 02/09/19 09:01 Last Admin: 08/10/18 08:49 Dose: 10 mg Amoxicillin (Amoxil) 875 mg PO DAILY [facility] Stop: 02/09/19 09:01 Last Admin: 08/10/18 08:49 Dose: 875 mg Aspirin (Aspirin) 81 mg PO HS [facility] Stop: 02/08/19 21:01 Last Admin: 08/09/18 20:57 Dose: 81 mg Carvedilol (Coreg) 3.125 mg PO BIDWM [facility]; Protocol Stop: 02/09/19 17:01 Losartan Potassium (Cozaar) 25 mg PO DAILY [facility]; Protocol Stop: 02/09/19 09:01 Last Admin: 08/10/18 08:49 Dose: 25 mg Montelukast Sodium (Singulair) 10 mg PO DAILY [facility] Stop: 02/09/19 09:01 Last Admin: 08/10/18 08:49 Dose: 10 mg Naloxone HCl (Narcan) 0.4 mg IVP Q2MIN PRN PRN Reason: SEE COMMENTS Stop: 02/08/19 18:25 Nitroglycerin (Nitroglycerin) 0.4 mg SL Q5MIN PRN PRN Reason: Chest Pain Stop: 02/08/19 18:19 Omeprazole (Prilosec) 40 mg PO DAILY [facility] Stop: 02/09/19 09:01 Last Admin: 08/10/18 08:49 Dose: 40 mg Ticagrelor (Brilinta) 90 mg PO BID [facility] Stop: 02/08/19 21:01 Last Admin: 08/10/18 08:49 Dose: 90 mg Laboratory Tests 08/09/18 08/09/18 08/10/18 15:38 15:38 01:00 Hgb 15.7 Potassium 4.2 Creatinine 0.98 Magnesium 2.3 Troponin I < 0.03 TSH 1.966 U Marijuana (THC) Screen Positive H - Imaging and Cardiology Chest Xray: report reviewed Echo: report reviewed Cardiac cath: report reviewed - EKG Interpretation EKG results cardiology: other (Telemetry reveiwed with average HR previous 12 hours noted to be 88, SR. Intermittent bigeminal rhythm.) Consult Discharge Plan - Plan Referrals: Rogerio Mccarthy MD [Primary Care Provider] -
--- NOTE | 2018-08-10 15:16 | Discharge Summary ---
Date of Encounter: 08/10/18 Time of Encounter: 15:14 - Discharge Diagnosis (2) CAD (coronary artery disease), [place] coronary artery Priority: Secondary Status: Chronic Qualifiers: [place] vs. transplanted heart: [place] heart Associated angina: with stable angina Qualified Code(s): I25.118 - Atherosclerotic heart disease of [place] coronary artery with other forms of angina pectoris (3) Symptomatic bradycardia Priority: Primary Status: Acute (4) Ventricular bigeminy Priority: Secondary Status: Acute (5) Hypertension Priority: Secondary Status: Chronic Qualifiers: Hypertension type: essential hypertension Qualified Code(s): I10 - Essential (primary) hypertension Hospital course: Mr. Hayes is a 58 year old male - Time Spent with Patient Total time spent providing and/or coordinating discharge services: Greater than 30 minutes - Discharge Medications Home Medications: Esomeprazole Magnesium [Nexium] 40 mg PO DAILY 07/23/16 [History] Nitroglycerin 0.4 mg SL Q5MIN PRN #30 tab.subl 07/24/16 [Rx] Ticagrelor [Brilinta] 90 mg PO BID 06/12/17 [History] Amlodipine Besylate 10 mg PO DAILY 07/07/17 [History] Aspirin 81 mg PO HS 07/07/17 [History] Amoxicillin 875 mg PO BID 08/09/18 [History] Losartan [Cozaar] 25 mg PO DAILY 08/09/18 [History] Montelukast [Singulair] 10 mg PO DAILY 08/09/18 [History] Allergies/Adverse Reactions: Allergy/AdvReac Type Severity Reaction Status Date / Time No Known Allergies Allergy Verified 07/21/17 09:50 Date of admission: 08/09/18 17:56 Primary care physician: Rogerio Mccarthy MD Discharging clinician: Letty Burch Anticipated date of discharge: 08/10/18 - Constitutional Vitals: Temp Pulse Resp BP Pulse Ox 97.8 F 83 15 142/81 96 08/10/18 05:38 08/10/18 06:46 08/10/18 05:38 08/10/18 06:46 08/10/18 06:46 General appearance: Present: A&O X 3, no acute distress, obese Exam: . - Patient Status Disposition: Home, Self-Care Condition: Good Functional capacity at discharge: independent ambulation Overall status at discharge: patient is progressing back to baseline - Discharge Instructions - Diet and Activity Activity: other Diet: advance to your usual diet
== END 2018-08-10 16:00 | disposition home or self-care (01) ==
LOC: 2NENU 14:57 → EMEROOARM 14:57 → 2NENU 18:38
PROVIDERS: ADMIT Internal Medicine; ATTEND Internal Medicine